=== PATIENT | female | born 1935 | race Caucasian/White ===

== ENCOUNTER → 2016-12-29 | Outpatient (CLI) | payer OTHER ==
--- NOTE | 2016-12-29 10:55 | REPMRS ---
Patient History The patient states she had a clinical breast exam in August 2016. Family history of breast cancer in sister at age 70 and endometrial cancer in mother at age 44. Took hormonal contraceptives for 12 years. Took unspecified hormones for 20 years. Digital Mammo Screening Bilat: December 29, 2016 - Exam #: [id number] Bilateral CC and MLO view(s) were taken. Technologist: Mireille Sims, Technologist Prior study comparison: December 03, 2015, digital bilateral screening mammo, performed at [facility]. November 22, 2014, bilateral digital mammo screening bilat performed at [facility]. FINDINGS: There are scattered fibroglandular densities. There has been no change in the appearance of the mammogram from the prior studies. There is a mild amount of residual fibroglandular tissue which is fairly symmetric. There is no interval development of dominant mass, architectural distortion, or clustered microcalcification suggestive of malignancy. ASSESSMENT: BI-RADS/ACR category 1 mammogram. Negative. Recommendation Routine screening mammogram in 1 year (for women over age 40). This mammogram was interpreted with the aid of an FDA-approved computer-aided dectection system. Electronically Signed By: Erasmo Hodge MD 12/29/16 [id number]
== END ==
LOC: M RAD 09:45
PROVIDERS: ATTEND Nurse Practitioner Family
DX: Z12.31 Encounter for screening mammogram for malignant neoplasm of breast (principal); Z80.3 Family history of malignant neoplasm of breast; Z79.3 Long term (current) use of hormonal contraceptives; Z79.899 Other long term (current) drug therapy

== ENCOUNTER → 2017-03-03 | Outpatient (CLI) | payer OTHER ==
[2017-03-03 11:49] LABS: MEAN CORPUSCULAR HEMOGLOBIN 30.7 pg (27.0-33.0); MEAN CORPUSCULAR HGB CONC 33.4 g/dl (32.0-36.5); MEAN CORPUSCULAR VOLUME 91.9 fl (80.0-96.0); RED CELL DISTRIBUTION WIDTH 12.4 % (11.5-14.5); WHITE BLOOD COUNT 5.7 K/mm3 (4.0-10.0)
[2017-03-03 11:56] LABS: ALBUMIN 3.5 GM/DL (3.2-5.2); ALBUMIN/GLOBULIN RATIO 1.13 (1.00-1.93); BILIRUBIN,TOTAL 0.9 MG/DL (0.2-1.0); CALCIUM LEVEL 9.6 MG/DL (8.8-10.2); CREATININE FOR GFR 1.06 MG/DL (0.55-1.02); POTASSIUM SERUM 4.4 MEQ/L (3.5-5.1); TOTAL PROTEIN 6.6 GM/DL (6.4-8.2)
== END ==
LOC: M LRY 08:26
PROVIDERS: ATTEND Nurse Practitioner Family
DX: E78.00 Pure hypercholesterolemia, unspecified (principal); I10 Essential (primary) hypertension; E55.9 Vitamin D deficiency, unspecified

== ENCOUNTER → 2017-08-31 | Outpatient (CLI) | payer OTHER ==
[2017-08-31 11:48] LABS: MEAN CORPUSCULAR HEMOGLOBIN 29.5 pg (27.0-33.0); MEAN CORPUSCULAR HGB CONC 32.3 g/dl (32.0-36.5); MEAN CORPUSCULAR VOLUME 91.5 fl (80.0-96.0); PLATELET COUNT, AUTOMATED 171 10^3/uL (150-450); RED CELL DISTRIBUTION WIDTH 13.2 % (11.5-14.5); WHITE BLOOD COUNT 5.8 10^3/uL (4.0-10.0)
[2017-08-31 12:23] LABS: ALBUMIN 3.7 GM/DL (3.2-5.2); ALBUMIN/GLOBULIN RATIO 1.23 (1.00-1.93); BILIRUBIN,TOTAL 0.8 MG/DL (0.2-1.0); CALCIUM LEVEL 9.1 MG/DL (8.8-10.2); CREATININE FOR GFR 1.07 MG/DL (0.55-1.02); FREE T4 1.09 NG/DL (0.76-1.46); GLOMERULAR FILTRATION RATE 52.3 (>32); POTASSIUM SERUM 4.4 MEQ/L (3.5-5.1); TOTAL PROTEIN 6.7 GM/DL (6.4-8.2)
== END ==
LOC: M LRY 09:18
PROVIDERS: ATTEND Nurse Practitioner Family
DX: E78.5 Hyperlipidemia, unspecified (principal); I10 Essential (primary) hypertension; R53.83 Other fatigue; E55.9 Vitamin D deficiency, unspecified; E53.8 Deficiency of other specified B group vitamins

== ENCOUNTER → 2017-12-14 | Outpatient (CLI) | payer OTHER ==
[2017-12-14 11:27] LABS: BASO % 0.7 % (0.0-1.0); EOS # 0.2 10^3/uL (0.0-0.50); EOS % 4.2 % (0.0-3.0); HEMATOCRIT 43.4 % (36.0-47.0); HEMOGLOBIN 14.1 g/dl (12.0-16.0); IMMATURE GRANULOCYTE % 0.7 % (0-3.0); LYMPH # 1.3 10^3/uL (1.5-4.5); LYMPH % 23.5 % (24.0-44.0); MEAN CORPUSCULAR HEMOGLOBIN 29.3 pg (27.0-33.0); MEAN CORPUSCULAR HGB CONC 32.5 g/dl (32.0-36.5); MEAN CORPUSCULAR VOLUME 90.2 fl (80.0-96.0); MONO # 0.7 10^3/uL (0.0-0.8); MONO % 12.2 % (0.0-5.0); NEUTROPHILS # 3.3 10^3/uL (1.8-7.7); NEUTROPHILS % 58.7 % (36.0-66.0); PLATELET COUNT, AUTOMATED 160 10^3/uL (150-450); RED BLOOD COUNT 4.81 10^6/uL (4.00-5.40); RED CELL DISTRIBUTION WIDTH 12.8 % (11.5-14.5); WHITE BLOOD COUNT 5.7 10^3/uL (4.0-10.0)
[2017-12-14 11:37] LABS: ALBUMIN 3.8 GM/DL (3.2-5.2); ALBUMIN/GLOBULIN RATIO 1.15 (1.00-1.93); ALKALINE PHOSPHATASE 55 U/L (45-117); ALT/SGPT 11 U/L (12-78); ANION GAP 5 MEQ/L (8-16); AST/SGOT 14 U/L (7-37); BILIRUBIN,TOTAL 0.9 MG/DL (0.2-1.0); BLOOD UREA NITROGEN 22 MG/DL (7-18); CALCIUM LEVEL 9.3 MG/DL (8.8-10.2); CARBON DIOXIDE LEVEL 32 MEQ/L (21-32); CHLORIDE LEVEL 104 MEQ/L (98-107); CHOLESTEROL LEVEL 208 MG/DL (<200); CHOLESTEROL RISK RATIO 2.144 (<5); CREATININE FOR GFR 1.03 MG/DL (0.55-1.30); GLOMERULAR FILTRATION RATE 54.6 (>32); GLUCOSE, FASTING 98 MG/DL (70-100); HDL CHOLESTEROL 97 MG/DL (>40); LDL CHOLESTEROL 96.4 MG/DL (<100); NON-HDL-C 111 MG/DL; POTASSIUM SERUM 4.2 MEQ/L (3.5-5.1); SODIUM LEVEL 141 MEQ/L (136-145); TOTAL PROTEIN 7.1 GM/DL (6.4-8.2); TRIGLYCERIDES LEVEL 73 MG/DL (<150)
[2017-12-14 11:46] LABS: ESTIMATED AVERAGE GLUCOSE 128 MG/DL (60-110); HEMOGLOBIN A1c 6.1 %; TOTAL 25(OH) VITAMIN D 61.1 NG/ML (30.0-100.0)
== END ==
LOC: M LRY 09:15
DX: E55.9 Vitamin D deficiency, unspecified (principal); I10 Essential (primary) hypertension; E78.5 Hyperlipidemia, unspecified; Z79.899 Other long term (current) drug therapy
CPT/HCPCS: 80053

== ENCOUNTER → 2018-06-13 | Outpatient (CLI) | payer OTHER ==
[2018-06-13 11:54] LABS: HEMOGLOBIN 13.2 g/dl (12.0-15.5); MEAN CORPUSCULAR HEMOGLOBIN 29.5 pg (27.0-33.0); MEAN CORPUSCULAR HGB CONC 32.2 g/dl (32.0-36.5); MEAN CORPUSCULAR VOLUME 91.5 fl (80.0-96.0); PLATELET COUNT, AUTOMATED 146 10^3/uL (150-450); RED BLOOD COUNT 4.48 10^6/uL (4.00-5.40); RED CELL DISTRIBUTION WIDTH 13.3 % (11.5-14.5); WHITE BLOOD COUNT 5.9 10^3/uL (4.0-10.0)
[2018-06-13 12:21] LABS: ALBUMIN 3.4 GM/DL (3.2-5.2); ALKALINE PHOSPHATASE 57 U/L (45-117); ALT/SGPT 13 U/L (12-78); ANION GAP 5 MEQ/L (8-16); AST/SGOT 15 U/L (7-37); BILIRUBIN,TOTAL 0.7 MG/DL (0.2-1.0); BLOOD UREA NITROGEN 23 MG/DL (7-18); CALCIUM LEVEL 8.6 MG/DL (8.8-10.2); CARBON DIOXIDE LEVEL 33 MEQ/L (21-32); CHLORIDE LEVEL 104 MEQ/L (98-107); CHOLESTEROL LEVEL 209 MG/DL (<200); CHOLESTEROL RISK RATIO 2.069 (<5); CPK CREATINE PHOSPHOKINASE 75 U/L (26-192); CREATININE FOR GFR 1.08 MG/DL (0.55-1.30); GLOMERULAR FILTRATION RATE 51.7 (>32); GLUCOSE, FASTING 98 MG/DL (70-100); HDL CHOLESTEROL 101 MG/DL (>40); LDL CHOLESTEROL 94 MG/DL (<100); NON-HDL-C 108 MG/DL; POTASSIUM SERUM 4.2 MEQ/L (3.5-5.1); SODIUM LEVEL 142 MEQ/L (136-145); TOTAL PROTEIN 6.5 GM/DL (6.4-8.2); TRIGLYCERIDES LEVEL 72 MG/DL (<150)
== END ==
LOC: M LRY 08:51
DX: E78.00 Pure hypercholesterolemia, unspecified (principal); I10 Essential (primary) hypertension
CPT/HCPCS: 82550

== ENCOUNTER → 2018-12-20 | Outpatient (REF) | payer MEDICARE ==
[2018-12-20 17:39] LABS: HEMOGLOBIN A1c 6.5 %
[2018-12-20 17:40] LABS: ALBUMIN 3.8 GM/DL (3.2-5.2); BILIRUBIN,TOTAL 1.1 MG/DL (0.2-1.0); CALCIUM LEVEL 9.4 MG/DL (8.8-10.2); CHOLESTEROL RISK RATIO 2.305 (<5); GLOMERULAR FILTRATION RATE 56.4 (>32); POTASSIUM SERUM 4.1 MEQ/L (3.5-5.1); THYROID STIMULATING HORMONE 3.17 uIU/ML (0.358-3.740); TOTAL PROTEIN 6.3 GM/DL (6.4-8.2)
[2018-12-20 18:04] LABS: BASO % 0.6 % (0.0-1.0); EOS # 0.1 10^3/uL (0.0-0.50); EOS % 0.7 % (0.0-3.0); HEMATOCRIT 43.4 % (36.0-47.0); HEMOGLOBIN 14.1 g/dl (12.0-15.5); LYMPH # 1.1 10^3/uL (1.5-4.5); LYMPH % 15.2 % (24.0-44.0); MEAN CORPUSCULAR HEMOGLOBIN 29.7 pg (27.0-33.0); MEAN CORPUSCULAR HGB CONC 32.5 g/dl (32.0-36.5); MEAN CORPUSCULAR VOLUME 91.4 fl (80.0-96.0); MONO # 0.8 10^3/uL (0.0-0.8); MONO % 10.8 % (0.0-5.0); NEUTROPHILS # 5.1 10^3/uL (1.8-7.7); NEUTROPHILS % 72.4 % (36.0-66.0); PLATELET COUNT, AUTOMATED 163 10^3/uL (150-450); RED BLOOD COUNT 4.75 10^6/uL (4.00-5.40); WHITE BLOOD COUNT 7.1 10^3/uL (4.0-10.0)
== END ==
LOC: M SFHCLERA 10:19
PROVIDERS: ATTEND Family Medicine
DX: E78.5 Hyperlipidemia, unspecified (principal); I10 Essential (primary) hypertension; E66.9 Obesity, unspecified; Z68.34 Body mass index [BMI] 34.0-34.9, adult
CPT/HCPCS: 80053; 80061; 83036; 84443; 85025; 93005; G0463

== ENCOUNTER → 2018-12-30 | Outpatient (CLI) | payer MEDICARE ==
[2018-12-30 18:38] LABS: CALCIUM LEVEL 9.2 MG/DL (8.8-10.2); CREATININE FOR GFR 1.3 MG/DL (0.55-1.30); GLOMERULAR FILTRATION RATE 41.6 (>32); POTASSIUM SERUM 4.4 MEQ/L (3.5-5.1)
== END ==
LOC: M LRY 10:07
PROVIDERS: ATTEND Nurse Practitioner Family
DX: E87.6 Hypokalemia (principal); I10 Essential (primary) hypertension

== ENCOUNTER → 2019-01-23 | Outpatient (CLI) | payer MEDICARE ==
[2019-01-23 12:04] LABS: CALCIUM LEVEL 8.7 MG/DL (8.8-10.2); CREATININE FOR GFR 1.32 MG/DL (0.55-1.30); GLOMERULAR FILTRATION RATE 40.9 (>32); POTASSIUM SERUM 4.3 MEQ/L (3.5-5.1)
== END ==
LOC: M LRY 09:11
PROVIDERS: ATTEND Nurse Practitioner Family
DX: I10 Essential (primary) hypertension (principal)

== ENCOUNTER → 2019-02-16 | Outpatient (REF) | payer MEDICARE ==
[2019-02-16 17:12] LABS: CALCIUM LEVEL 9.5 MG/DL (8.8-10.2); CREATININE FOR GFR 1.31 MG/DL (0.55-1.30); GLOMERULAR FILTRATION RATE 41.3 (>32)
== END ==
LOC: M SFHCLERA 10:28
PROVIDERS: ATTEND Family Medicine
DX: I48.1 Persistent atrial fibrillation (principal)
CPT/HCPCS: 80048; G0463

== ENCOUNTER → 2019-04-04 | Outpatient (CLI) | payer MEDICARE ==
[2019-04-04 13:17] LABS: FREE T4 1.88 NG/DL (0.76-1.46); THYROID STIMULATING HORMONE 1.9 uIU/ML (0.358-3.740)
== END ==
LOC: M LRY 09:22
PROVIDERS: ATTEND Nurse Practitioner Family
DX: E03.9 Hypothyroidism, unspecified (principal)

== ENCOUNTER → 2019-04-19 | Outpatient (REF) | payer MEDICARE ==
[2019-04-19 20:08] LABS: CREATININE FOR GFR 1.15 MG/DL (0.55-1.30); POTASSIUM SERUM 4.6 MEQ/L (3.5-5.1)
== END ==
LOC: M SFHCLERA 14:52
PROVIDERS: ATTEND Family Medicine
DX: I10 Essential (primary) hypertension (principal)

== ENCOUNTER → 2019-06-21 | Outpatient (REF) | payer MEDICARE ==
[~2019-06-21] MED LIST: ACET-897 PO; DOCU-129 PO; DOCU100C16 PO; EZET10TA21; EZET10TA21 PO; FURO40TA2; FURO40TA2 PO; LEVO100T5; META0.52 PO; MIRA3350 PO; PANT40TA3; PANT40TA3 PO; POTA1TAB23; POTA1TAB23 PO; PRAD150C6; PRAD150C6 PO; PRAD75CA5 PO; ROSU20TA5; ROSU20TA5 PO; SYNT100T PO; VALS40TA9; VALS40TA9 PO
== END ==
LOC: M SFHCLERA 12:15
PROVIDERS: ATTEND Family Medicine
DX: I25.10 Atherosclerotic heart disease of native coronary artery without angina pectoris (principal); E03.8 Other specified hypothyroidism

== ENCOUNTER → 2019-06-26 | Outpatient (REF) | payer MEDICARE ==
[2019-06-26 12:41] LABS: CALCIUM LEVEL 8.9 MG/DL (8.8-10.2); CHOLESTEROL RISK RATIO 2.164 (<5); CREATININE FOR GFR 1.06 MG/DL (0.55-1.30); GLOMERULAR FILTRATION RATE 52.6 (>32); POTASSIUM SERUM 4.4 MEQ/L (3.5-5.1); THYROID STIMULATING HORMONE 0.406 uIU/ML (0.358-3.740)
== END ==
LOC: M SFHCLERA 09:41
PROVIDERS: ATTEND Family Medicine
DX: I25.10 Atherosclerotic heart disease of native coronary artery without angina pectoris (principal); E03.8 Other specified hypothyroidism

== ENCOUNTER 2019-07-06 23:30 | Observation (INO) | payer MEDICARE ==
[~2019-07-06] VITALS: Ht 160 cm; Wt 89.8 kg
[2019-07-06] MEDS ORDERED: ROSU20TA5 (23:49)
[2019-07-06] MEDS ORDERED: VALS1TAB49 (23:49)
[2019-07-06] MEDS ORDERED: PRAD150C6 (23:49)
[2019-07-06] MEDS ORDERED: EZET10TA21 (23:49)
[2019-07-06] MEDS ORDERED: DOCU-129 PO (23:49)
[2019-07-06] MEDS ORDERED: POTA1TAB23 (23:49)
[2019-07-06] MEDS ORDERED: LEVO100T5 (23:49)
[2019-07-06] MEDS ORDERED: FURO40TA2 (23:49)
[2019-07-06] MEDS ORDERED: PANT40TA3 (23:49)
[2019-07-07 00:44] LABS: BASO # 0.1 10^3/uL (0.0-0.2); EOS # 0.2 10^3/uL (0.0-0.5); EOS % 3.3 % (0.0-3.0); HEMATOCRIT 38.9 % (36.0-47.0); HEMOGLOBIN 12.8 g/dl (12.0-15.5); LYMPH # 1.2 10^3/uL (1.5-5.0); LYMPH % 20.6 % (24.0-44.0); MEAN CORPUSCULAR HEMOGLOBIN 31.1 pg (27.0-33.0); MEAN CORPUSCULAR HGB CONC 32.9 g/dl (32.0-36.5); MEAN CORPUSCULAR VOLUME 94.4 fl (80.0-96.0); MONO # 0.8 10^3/uL (0.0-0.8); NEUTROPHILS # 3.7 10^3/uL (1.5-8.5); NEUTROPHILS % 60.9 % (36.0-66.0); PLATELET COUNT, AUTOMATED 153 10^3/uL (150-450); RED BLOOD COUNT 4.12 10^6/uL (4.00-5.40)
[2019-07-07 00:55] LABS: INR 2.12; PROTHROMBIN TIME 23.6 SECONDS (11.8-14.0)
[2019-07-07 00:56] LABS: PARTIAL THROMBOPLASTIN TIME 57.4 SECONDS (25.0-38.4)
[2019-07-07 01:26] LABS: ALBUMIN 3.3 GM/DL (3.2-5.2); ALT/SGPT 16 U/L (12-78); BILIRUBIN,DIRECT < 0.1 MG/DL (0.0-0.2); BILIRUBIN,TOTAL 0.4 MG/DL (0.2-1.0); BLOOD UREA NITROGEN 26 MG/DL (7-18); CALCIUM LEVEL 8.7 MG/DL (8.8-10.2); CARBON DIOXIDE LEVEL 32 MEQ/L (21-32); CHLORIDE LEVEL 106 MEQ/L (98-107); CREATININE FOR GFR 1.06 MG/DL (0.55-1.30); GLOMERULAR FILTRATION RATE 52.6 (>32); GLUCOSE, FASTING 97 MG/DL (70-100); LIPASE 73 U/L (73-393); SODIUM LEVEL 142 MEQ/L (136-145); TOTAL PROTEIN 6.3 GM/DL (6.4-8.2)
[2019-07-07] MEDS ORDERED: ISOVUE-370 76% 100ML VIAL (Q9967) As Ordered ONE (02:23)
--- NOTE | 2019-07-07 03:45 | REPVR ---
PROCEDURE INFORMATION: Exam: CT Abdomen And Pelvis With Contrast Exam date and time: 07/07/2019 2:12 AM Clinical history: 84 years old, female; Other: Rectal bleeding; Additional info: Lower gi bleed, suspect diverticulosis TECHNIQUE: Imaging protocol: Computed tomography of the abdomen and pelvis with intravenous contrast. Radiation optimization: All CT scans at this facility use at least one of these dose optimization techniques: automated exposure control; mA and/or kV adjustment per patient size (includes targeted exams where dose is matched to clinical indication); or iterative reconstruction. Contrast material: ISO; Contrast volume: 100 ml; Contrast route: AC; COMPARISON: No relevant prior studies available. FINDINGS: Mediastinum: Small to medium-sized paraesophageal hiatal hernia. Liver: Normal. No mass. Gallbladder and bile ducts: Cholelithiasis. Pancreas: Normal. No ductal dilation. Spleen: Normal. No splenomegaly. Adrenals: Normal. No mass. 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 Stomach and bowel: Moderate diverticulosis coli. Question trace inflammation around the sigmoid colon on axial image 120. Appendix: No evidence of appendicitis. Intraperitoneal space: Unremarkable. No free air. No significant fluid collection. Vasculature: Renal artery origin moderate stenosis. Mild to moderate aortic and iliac artery atherosclerotic calcification. Lymph nodes: Unremarkable. No enlarged lymph nodes. Bladder: Unremarkable as visualized. Reproductive: Hysterectomy. Bones/joints: Mild/moderate lumbar spondylosis. Soft tissues: Moderate bilateral fat protruding inguinal hernias. IMPRESSION: 1. Moderate diverticulosis coli with equivocal minimal inflammation/diverticulitis. 2. Moderate bilateral fat protruding inguinal hernias. 3. Cholelithiasis. 4. 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 5. Small to medium-sized paraesophageal hiatal hernia with wall thickening. Recommend followup. Electronically signed by: Phil Aguila On 07/07/2019 03:44:23 AM
[2019-07-07] MEDS ORDERED: EZET10TA21 PO (04:45)
[2019-07-07] MEDS ORDERED: FURO40TA2 PO (04:45)
[2019-07-07] MEDS ORDERED: POTA1TAB23 PO (04:45)
[2019-07-07] MEDS ORDERED: ROSU20TA5 PO (04:45)
[2019-07-07] MEDS ORDERED: DOCU100C16 PO (04:45)
[2019-07-07] MEDS ORDERED: ACET-897 PO (04:45)
[2019-07-07] MEDS ORDERED: SYNT100T PO (04:45)
[2019-07-07] MEDS ORDERED: VALS1TAB49 PO (04:45)
[2019-07-07] MEDS ORDERED: PRAD150C6 PO (04:45)
[2019-07-07] MEDS ORDERED: PANT40TA3 PO (04:45)
[2019-07-07] MEDS ORDERED: ACETAMINOPHEN 500 MG TAB PO PRN (05:45)
[2019-07-07 08:39] LABS: HEMATOCRIT 38.7 % (36.0-47.0); HEMOGLOBIN 12.4 g/dl (12.0-15.5); MEAN CORPUSCULAR HEMOGLOBIN 30.3 pg (27.0-33.0); MEAN CORPUSCULAR VOLUME 94.6 fl (80.0-96.0); PLATELET COUNT, AUTOMATED 148 10^3/uL (150-450); RED BLOOD COUNT 4.09 10^6/uL (4.00-5.40); WHITE BLOOD COUNT 4.7 10^3/uL (4.0-10.0)
--- NOTE | 2019-07-07 08:57 | HPEPDOC ---
General Date of Admission Jul 06, 2019 at 23:31 Date of Service: Jul 07, 2019 Attending Physician: KELLY GARSIA MD Chief Complaint The patient is a 84-year-old female admitted with a reason for visit of Diverticulitis Of Colon W Hemorrhage. Source: Patient Exam Limitations: No limitations Timing/Duration: 1-3 hours Severity: Moderate Associated Symptoms: Other (rectal bleeding) History of Present Illness 84 yo woman with a history of CAD s/p remote CABG, HLD, HTN, GERD, hypothyroidism and pAfib previously on 75mg BID dabigatran that was increased 3 days prior to presentation to 150mg BID who presents to the ED with acute painless passive rectal bleeding that she noted while urinating before as she prepared to go to bed. She denies any recent constipation, recent hemorrhoids, abdominal pain, weight loss, fever, chills or dizziness. She reports a history of occasional constipation and has noted prior blood streaks when she wipes on the tissue from time to time that she attributed to likely hemorrhoids. She reports that she has been on dabigatran at 75 BID for a long time and 3 days ago saw her heel builder Dr. Molina who increased it to 150 BID. She otherwise reports feeling well with no abdominal pain, chest pain, back pain or suprapubic pain. In the ED she arrived hemodynamically stable and initial workup revealed no anemia, a normal WBC, Cr 1.06, INR 2.12 with normal LFTs, while a CT A/P revealed moderate diverticulosis with equivocal; minimal inflammation/diverticulitis and an incidental 9mm renal angiomyolipoma. Home Medications Scheduled Dabigatran Etexilate Mesylate (Pradaxa) 150 Mg Capsule, 150 MG PO BID, (Reported) Docusate Sodium (Docusate Sodium) 100 Mg Capsule, 100 MG PO QHS, (Reported) Ezetimibe (Ezetimibe) 10 Mg Tablet, 10 MG PO QPM, (Reported) DINNERTIME Furosemide (Furosemide) 40 Mg Tablet, 40 MG PO DAILY, (Reported) Levothyroxine Sodium (Synthroid) 100 Mcg Tablet, 100 MCG PO DAILY, (Reported) Pantoprazole Sodium (Pantoprazole Sodium) 40 Mg Tablet.dr, 40 MG PO DAILY, (Reported) Potassium Chloride (Potassium Chloride) 10 Meq Tablet.er, 10 MEQ PO BID, (Reported) Rosuvastatin Calcium (Rosuvastatin Calcium) 20 Mg Tablet, 20 MG PO QPM, (Reported) DINNERTIME Valsartan (Valsartan) 40 Mg Tablet, 40 MG PO BID, (Reported) Scheduled PRN Acetaminophen (Tylenol Extra Strength) 500 Mg Tablet, 1,000 MG PO Q8H PRN for PAIN, (Reported) Allergies Coded Allergies: No Known Allergies (Unverified , 07/06/19) Past Medical History Medical History GERD CAD HTN HLD Hypothyroidism paroxysmal AFib Surgical History remote CABG Family History Significant Family History: Diverticulitis Social History * Smoker: Denies Alcohol: Denies Drugs: denies Recent Travel/Sick Contacts: Denies: Recent travel, Recent sick contacts Psychosocial History: No pertinent psych hx A-FIB/CHADSVASC A-FIB History Current/History of A-Fib/PAF?: Yes Current PO Anticoag Therapy: Yes Age/Risk Factor Scoring CHADSVASC: CHADSVASC Response (Comments) Value Age Risk Factor Age >/= 75 years old 2 Gender Risk Factor Female 1 Hx of CHF Yes 1 Hx of HTN Yes 1 Hx of Stroke/TIA/or VTE No 0 Hx of Diabetes No 0 Hx of Vascular Disease Yes 1 Total 6 Treatment Treatment ordered: NONE, Dabigatran Reason Anticoagulant not given: Current bleeding Review of Systems Constitutional: Denies: Chills, Fever, Night Sweats Eyes: Denies: Pain, Vision change ENT: Denies: Head Aches, Ear Pain, Dysphagia Skin: Denies: Rash, Lesions, Breakdown Pulmonary: Denies: Dyspnea, Cough Cardiovascular: Denies: Chest Pain, Palpitations, Orthopnea, Paroxysmal Noc. Dyspnea, Lt Headedness Gastrointestinal: Reports: Other Symptoms (passive rectal bleeding without stooling); Denies: Nausea, Vomiting, Abdominal Pain, Diarrhea, Constipation, Melena Genitourinary: Denies: Dysuria, Frequency, Incontinence, Retention Hematologic: Denies: Bruising, Bleeding Excessively Endocrine: Denies: Polydipsia, Polyphagia, Polyuria, Heat Intolerance, Cold Intolerance, Other Endocrine Sx Musculoskeletal: Denies: Neck Pain, Back Pain, Joint Pain, Muscle Pain, Spasms Neurological: Denies: Weakness, Numbness, Change in speech, Confusion Psych: Reports: Mood Normal; Denies: Depression, Memory Issues Physical Examination General Exam: Positive: Alert, No Acute Distress Eye Exam: Positive: PERRLA, Conjunctiva & lids normal, EOMI; Negative: Sclera icteric ENT Exam: Positive: Atraumatic, Mucous membr. moist/pink, Pharynx Normal Neck Exam: Positive: Supple; Negative: JVD, thyromegaly Chest Exam: Positive: Clear to auscultation, Normal air movement Heart Exam: Positive: Rate Normal, Regular Rhythm, Normal S1, Normal S2; Negative: Murmurs, Rubs Abdomen Exam: Positive: Normal bowel sounds, Soft; Negative: Tenderness, Hepatospenomegaly Extremity Exam: Positive: Normal pulses; Negative: Clubbing, Cyanosis, Edema Skin Exam: Positive: Nl turgor and temperature; Negative: Breakdown, Lesion Neuro Exam: Positive: Normal Speech, Cranial Nerves 3-12 NL Psych Exam: Positive: Mental status NL, Mood NL, Oriented x 3 Vital Signs Vital Signs Date Time Temp Pulse Resp B/P (MAP) Pulse Ox O2 Delivery O2 Flow Rate FiO2 07/07/19 07:31 183/76 (111) 07/07/19 07:30 61 98 07/07/19 06:47 14 Room Air 07/06/19 23:45 95.8 Laboratory Data Labs 24H Laboratory Tests 2 07/07/19 00:30: Immature Granulocyte % (Auto) 0.2, Neutrophils (%) (Auto) 60.9, Lymphocytes (%) (Auto) 20.6L, Monocytes (%) (Auto) 14.0H, Eosinophils (%) (Auto) 3.3H, Basophils (%) (Auto) 1.0, Neutrophils # (Auto) 3.7, Lymphocytes # (Auto) 1.2L, Monocytes # (Auto) 0.8, Eosinophils # (Auto) 0.2, Basophils # (Auto) 0.1, Nucleated Red Blood Cells % (auto) 0.0, Anion Gap 4L, Glomerular Filtration Rate 52.6, Calcium Level 8.7L, Total Bilirubin 0.4, Direct Bilirubin < 0.1, Aspartate Amino Transf (AST/SGOT) 23, Alanine Aminotransferase (ALT/SGPT) 16, Alkaline Phosphatase 66, Total Protein 6.3L, Albumin 3.3, Albumin/Globulin Ratio 1.10, Lipase 73 07/07/19 00:42: Prothrombin Time 23.6H, Prothromb Time International Ratio 2.12, Activated Partial Thromboplast Time 57.4H 07/07/19 08:09: CBC/BMP Laboratory Tests 07/07/19 00:30 Assessment/Plan 84 yo woman with CAD, HTN, HLD, GERD, hypothyroidism and paroxysmal Afib who presents with painless passive rectal bleeding and found to have diverticulosis with mild diverticulitis in the setting of a recent dabigatran dose increase. Plan: 1. Rectal bleeding: -hold dabigatran -consulted cardiology to discuss the dose increase as she had previously done well on the 75 BID. Consult order placed, to call this morning. -follow up CBC -No anemia at this time, will check type and screen 2. paroxysmal Afib: -currently in sinus -telemetry -Was previously placed on amio c/b symptomatic bradycardia -discuss management and AC dosing with cardiology 3. Hypertension: -continue home valsartan 40 BID 4. GERD: -continue protonix 40 daily 5. Hyperlipidemia: -continue crestor 20 QD and Ezetimibe 6. Hypothyroidism: -continue home synthroid DVT prophylaxis: SCDs and TEDs Diet: regular Plan / VTE VTE Prophylaxis Ordered?: Yes VTE Exclusion Pharmacological: Active Bleeding KELLY GARSIA MD Jul 07, 2019 08:57
[2019-07-07 09:07] LABS: CALCIUM LEVEL 9.2 MG/DL (8.8-10.2); CREATININE FOR GFR 1.04 MG/DL (0.55-1.30); GLOMERULAR FILTRATION RATE 53.7 (>32); POTASSIUM SERUM 4.5 MEQ/L (3.5-5.1)
[2019-07-07] MEDS: LEVOTHYROXINE 100MCG TABLET (0.1MG) PO SCH (09:12)
[2019-07-07] MEDS: VALSARTAN 40MG TABLET (DIOVAN) PO SCH ×2 (09:12→21:33)
[2019-07-07] MEDS: POTASSIUM CHLORIDE 10 MEQ SR TABLET PO SCH ×2 (09:13→20:55)
[2019-07-07] MEDS: PANTOPRAZOLE 40MG TAB (PROTONIX) PO SCH (09:13)
[2019-07-07] MEDS: FUROSEMIDE 40 MG TAB PO SCH (09:13)
[2019-07-07 14:17] VITALS: BP 146/68
--- NOTE | 2019-07-07 19:55 | ECGEPIP ---
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
[2019-07-07] MEDS ORDERED: ROSUVASTATIN 10 MG TAB (CRESTOR) PO SCH (21:00)
[2019-07-07] MEDS ORDERED: DOCUSATE SODIUM 100 MG CAP PO SCH (21:00)
[2019-07-07] MEDS ORDERED: EZETIMIBE 10 MG TAB (ZETIA) PO SCH (21:00)
[2019-07-07 22:00] VITALS: BP 110/70
[2019-07-08] MEDS: LEVOTHYROXINE 100MCG TABLET (0.1MG) PO SCH (05:43)
[2019-07-08 06:00] VITALS: BP 139/62
[2019-07-08 07:36] LABS: HEMATOCRIT 39.5 % (36.0-47.0); HEMOGLOBIN 12.8 g/dl (12.0-15.5); MEAN CORPUSCULAR HEMOGLOBIN 30.8 pg (27.0-33.0); MEAN CORPUSCULAR HGB CONC 32.4 g/dl (32.0-36.5); MEAN CORPUSCULAR VOLUME 95.2 fl (80.0-96.0); PLATELET COUNT, AUTOMATED 151 10^3/uL (150-450); RED BLOOD COUNT 4.15 10^6/uL (4.00-5.40); WHITE BLOOD COUNT 4.2 10^3/uL (4.0-10.0)
[2019-07-08 07:59] LABS: CREATININE FOR GFR 0.99 MG/DL (0.55-1.30); GLOMERULAR FILTRATION RATE 56.9 (>32); POTASSIUM SERUM 4.1 MEQ/L (3.5-5.1)
[2019-07-08 09:07] VITALS: BP 110/58
[2019-07-08] MEDS: PANTOPRAZOLE 40MG TAB (PROTONIX) PO SCH (09:07)
[2019-07-08] MEDS: POTASSIUM CHLORIDE 10 MEQ SR TABLET PO SCH (09:07)
[2019-07-08] MEDS: VALSARTAN 40MG TABLET (DIOVAN) PO SCH (09:07)
[2019-07-08] MEDS: FUROSEMIDE 40 MG TAB PO SCH (09:07)
[2019-07-08] MEDS ORDERED: PRAD75CA5 PO (12:32)
--- NOTE | 2019-07-08 13:45 | DS.PDOC ---
Discharge Summary General Date of Admission Jul 06, 2019 at 23:31 Date of Discharge July 08, 2019 Primary Care Physician: JAJA WHITE MD Discharge Summary PROCEDURES PERFORMED DURING STAY: None. ADMITTING DIAGNOSES: 1. Rectal blood loss. DISCHARGE DIAGNOSES: 1. Diverticular disease with hemorrhage,Coronary artery disease, paroxysmal atrial fibrillation for which the patient is on chronic anticoagulation, dyslipidemia, hypertension, gastroesophageal reflux disease, hypothyroidism. COMPLICATIONS/CHIEF COMPLAINT: Diverticulitis Of Colon W Hemorrhage. HISTORY OF PRESENT ILLNESS/HOSPITAL COURSE: This is a 84-year-old female with a history of paroxysmal atrial fibrillation. She is normally on anticoagulation with Pradaxa 75 mg twice a day. She has been on this dosage for several months. Three days prior to admission her dosage was increased to 150 mg twice a day. The patient then developed acute painless rectal bleeding. She did not have associated symptoms such as lightheadedness or dizziness. She did not develop hypotension or tachycardia. She was not short of breath or hypoxic. The patient was admitted to the [facility] floor. She did not have additional bleeding after arrival there. CT scan did show minimal diverticular disease, which was the likely source of bleed. Her Pradaxa was held. The patient's hemoglobin remained stable at 12.4 - 12.8 and she did not require transfusion. This appears to have been directly associated with increasing the dosage of her Pradaxa. Of interest, upon further evaluation the patient is found to have chronic kidney disease stage III, with glomerular filtration rate as low as 40.9. Dosage of 75 mg twice a day is appropriate in this patient.. DISCHARGE MEDICATIONS: Please see below. ALLERGIES: Please see below. PHYSICAL EXAMINATION ON DISCHARGE: VITAL SIGNS: Please see below. HEENT: Neck is supple with no adenopathy or thyromegaly, oral mucosa is moist, she does not exhibit any pallor CARDIOVASCULAR EXAMINATION: Regular rate and rhythm with a normal S1 and S2 RESPIRATORY EXAMINATION: Clear to auscultation ABDOMINAL EXAMINATION: Soft, nontender, nondistended with significant central obesity EXTREMITIES: No peripheral edema, pedal pulses are palpable SKIN: No acute lesions NEUROLOGICAL EXAMINATION: No focal neuromotor or sensory deficit PSYCHIATRIC EXAMINATION: Patient is actually remarkably anxious about her overall health and requires significant reassurance. LABORATORY DATA: Please see below. IMAGING: ABD CT SCAN IMPRESSION: 1. Moderate diverticulosis coli with equivocal minimal inflammation/diverticulitis. 2. Moderate bilateral fat protruding inguinal hernias. 3. Cholelithiasis. 4. 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 5. Small to medium-sized paraesophageal hiatal hernia with wall thickening. Recommend followup. Electronically signed by: Phil Aguila On 07/07/2019 03:44:23 AM PROGNOSIS: ACTIVITY: As tolerated. DIET: Heart healthy DISCHARGE PLAN: Patient is stable for discharge to home. We suggest that she resume her Pradaxa at her lower dose 75 mg by mouth twice a day starting July 11. If she has significant recurrence of bleeding she would then need to call her PCP about this medication. Again, please note the patient has underlying stage III chronic kidney disease which would indicate a lower dosage. She should then follow up with her primary care provider, Dr. White in 1-2 weeks. DISPOSITION: . To home DISCHARGE CONDITION: Stable. TIME SPENT ON DISCHARGE: Greater than 35 minutes. Vital Signs/I&Os Vital Signs Date Time Temp Pulse Resp B/P (MAP) Pulse Ox O2 Delivery O2 Flow Rate FiO2 07/08/19 09:07 110/58 07/08/19 06:00 97.5 55 18 96 Room Air I&O- Last 24 Hours up to 6 AM 07/08/19 05:59 Intake Total 570 ml Output Total 700 ml Balance -130 ml Laboratory Data Labs 24H Laboratory Tests 2 07/08/19 07:16: Nucleated Red Blood Cells % (auto) 0.0, Anion Gap 3L, Glomerular Filtration Rate 56.9, Calcium Level 9.0 CBC/BMP Laboratory Tests 07/08/19 07:16 Discharge Medications Scheduled Dabigatran Etexilate Mesylate (Pradaxa) 75 Mg Capsule, 75 MG PO BID TO START JULY 11 Docusate Sodium (Docusate Sodium) 100 Mg Capsule, 100 MG PO QHS, (Reported) Ezetimibe (Ezetimibe) 10 Mg Tablet, 10 MG PO QPM, (Reported) DINNERTIME Furosemide (Furosemide) 40 Mg Tablet, 40 MG PO DAILY, (Reported) Levothyroxine Sodium (Synthroid) 100 Mcg Tablet, 100 MCG PO DAILY, (Reported) Pantoprazole Sodium (Pantoprazole Sodium) 40 Mg Tablet.dr, 40 MG PO DAILY, (Reported) Potassium Chloride (Potassium Chloride) 10 Meq Tablet.er, 10 MEQ PO BID, (Reported) Rosuvastatin Calcium (Rosuvastatin Calcium) 20 Mg Tablet, 20 MG PO QPM, (Reported) DINNERTIME Valsartan (Valsartan) 40 Mg Tablet, 40 MG PO BID, (Reported) Scheduled PRN Acetaminophen (Tylenol Extra Strength) 500 Mg Tablet, 1,000 MG PO Q8H PRN for PAIN, (Reported) Allergies Coded Allergies: No Known Allergies (Unverified , 07/06/19) HIEU BEAL MD Jul 08, 2019 13:45
== END 2019-07-08 13:55 | disposition home or self-care (01) ==
LOC: M ED 23:30 → M ED INP 23:31 → M MSPAV 07-07 14:33
PROVIDERS: ADMIT Internal Medicine; ATTEND Internal Medicine
DX: K57.91 Diverticulosis of intestine, part unspecified, without perforation or abscess with bleeding (principal); I25.10 Atherosclerotic heart disease of native coronary artery without angina pectoris; I48.0 Paroxysmal atrial fibrillation; E78.5 Hyperlipidemia, unspecified; K21.9 Gastro-esophageal reflux disease without esophagitis; E03.9 Hypothyroidism, unspecified; I12.9 Hypertensive chronic kidney disease with stage 1 through stage 4 chronic kidney disease, or unspecified chronic kidney disease; N18.3 Chronic kidney disease, stage 3 (moderate); K80.20 Calculus of gallbladder without cholecystitis without obstruction; K40.20 Bilateral inguinal hernia, without obstruction or gangrene, not specified as recurrent; Z95.1 Presence of aortocoronary bypass graft; Z79.01 Long term (current) use of anticoagulants; Z79.899 Other long term (current) drug therapy
CPT/HCPCS: 36415; 74177; 80048; 80076; 83690; 85025; 85027; 85610; 85730; 86850; 86900; 86901; 93005; 93041; 99285; G0378; Q9967

== ENCOUNTER 2019-08-30 22:32 | Inpatient (IN) | payer MEDICARE ==
[~2019-08-30] VITALS: Ht 160 cm; Wt 91.6 kg
[~2019-08-30 22:32] MED LIST changes: -META0.52 PO; -MIRA3350 PO
[2019-08-30 23:12] LABS: BASO # 0.1 10^3/uL (0.0-0.2); EOS # 0.1 10^3/uL (0.0-0.5); EOS % 2.3 % (0.0-3.0); HEMATOCRIT 38.7 % (36.0-47.0); HEMOGLOBIN 12.3 g/dl (12.0-15.5); LYMPH # 1.2 10^3/uL (1.5-5.0); MEAN CORPUSCULAR HEMOGLOBIN 29.4 pg (27.0-33.0); MEAN CORPUSCULAR HGB CONC 31.8 g/dl (32.0-36.5); MEAN CORPUSCULAR VOLUME 92.6 fl (80.0-96.0); MONO # 0.8 10^3/uL (0.0-0.8); MONO % 14.3 % (0.0-5.0); NEUTROPHILS # 3.2 10^3/uL (1.5-8.5); NEUTROPHILS % 60.2 % (36.0-66.0); PLATELET COUNT, AUTOMATED 168 10^3/uL (150-450); RED BLOOD COUNT 4.18 10^6/uL (4.00-5.40); WHITE BLOOD COUNT 5.2 10^3/uL (4.0-10.0)
[2019-08-30 23:23] LABS: INR 1.39; PARTIAL THROMBOPLASTIN TIME 28.6 SECONDS (25.0-38.4); PROTHROMBIN TIME 16.8 SECONDS (11.8-14.0)
[2019-08-31 00:03] LABS: ALBUMIN 3.5 GM/DL (3.2-5.2); BILIRUBIN,DIRECT 0.1 MG/DL (0.0-0.2); BILIRUBIN,TOTAL 0.4 MG/DL (0.2-1.0); CALCIUM LEVEL 8.9 MG/DL (8.8-10.2); CREATININE FOR GFR 1.13 MG/DL (0.55-1.30); GLOMERULAR FILTRATION RATE 48.8 (>32); POTASSIUM SERUM 4.7 MEQ/L (3.5-5.1); TOTAL PROTEIN 6.6 GM/DL (6.4-8.2)
[2019-08-31] MEDS ORDERED: ISOVUE-370 76% 100ML VIAL (Q9967) As Ordered ONE (00:11)
--- NOTE | 2019-08-31 00:57 | REPVR ---
PROCEDURE INFORMATION: Exam: CT Abdomen And Pelvis With Contrast Exam date and time: 08/31/2019 12:06 AM Age: 84 years old Clinical history: Abdominal pain; Generalized; Additional info: Gi bleed, HX of diverticulitis TECHNIQUE: Imaging protocol: Computed tomography of the abdomen and pelvis with intravenous contrast. Radiation optimization: All CT scans at this facility use at least one of these dose optimization techniques: automated exposure control; mA and/or kV adjustment per patient size (includes targeted exams where dose is matched to clinical indication); or iterative reconstruction. Contrast material: ISO; Contrast volume: 100 ml; Contrast route: AC; COMPARISON: CT ABD/PEL W/IV CONTRAST ONLY 07/07/2019 2:29 AM FINDINGS: Lungs: No suspicious mass or airspace process in the visualized lung bases. Mediastinum: Hiatal hernia is present measuring 7 cm. Liver: Liver appears normal with no focal abnormality. Gallbladder and bile ducts: Gallstones are present in the gallbladder lumen. No adjacent fluid or duct dilatation. Pancreas: Pancreas appears normal. No focal mass or peripancreatic inflammation. Spleen: Spleen appears homogeneous without focal mass. Adrenals: Adrenal glands are normal in appearance. Kidneys and ureters: Kidneys are unremarkable aside from an exophytic 8mm anterior right midpole cyst is unchanged, and a benign fat lesion in the medial mid pole right kidney, also unchanged. Stomach and bowel: No evidence of small bowel obstruction. Sparse colonic diverticula are present without evidence of inflammation. Appendix: Normal caliber appendix is identified, with no adjacent inflammation. Intraperitoneal space: No pneumoperitoneum. Vasculature: Atherosclerotic change present in the aorta, without aneurysm. Lymph nodes: No enlarged lymph nodes. Bladder: Urinary bladder appears normal. Reproductive: Uterus is surgically absent. Bones/joints: Bony structures are normal except for lumbar spine degenerative disc changes. Soft tissues: Unremarkable. IMPRESSION: 1. No evidence of acute abdominal or pelvic hemorrhage. 2. Scattered colonic diverticula changes without active inflammation. 3. Cholelithiasis. No biliary obstruction. 4. Large hiatal hernia COMMENT: Consistent with the [place] [employer]'s Incidental Findings Committee Report (J Am Tommie Radiol 2010): Unless the patient's specific circumstances suggest otherwise, any liver lesion 0.5 cm or less, any cystic kidney lesion less than 1.0 cm, and/or any adrenal lesion 1.0 cm or less not otherwise characterized in this report as possessing suspicious or indeterminate imaging features is/are highly likely to be benign and do not require follow-up imaging or biopsy. Electronically signed by: Guero Fletcher On 08/31/2019 00:57:05 AM
[2019-08-31] MEDS ORDERED: PRAD75CA5 PO (02:49)
[2019-08-31 03:15] LABS: HEMATOCRIT 35.6 % (36.0-47.0); HEMOGLOBIN 11.8 g/dl (12.0-15.5)
--- NOTE | 2019-08-31 03:40 | HPEPDOC ---
[facility] Medical History & Physical Date of Admission Aug 31, 2019 Date of Service: Aug 31, 2019 Primary Care Physician: JAJA PETERSEN MD Attending Physician: ASAF MENEZES MD History and Physical CHIEF COMPLAINT: blood mixed with stool HISTORY OF PRESENT ILLNESS: This is a 84-year-old female with a pertinent past medical history of atrial fibrillation on Pradaxa presenting today for painless rectal bleeding 1. Patient states that earlier this evening when she was trying to urinate she noticed in her toilet bowl bright red blood. She noticed when she wiped there was blood in the tissue paper. She denies having any nausea, vomiting, diarrhea or abdominal pain. She states this is similar to her previous episode when she was admitted early June. She states she is compliant with her Pradaxa 75 mg twice a day, which was the reduced does she was discharged on last time. She denies having any colonoscopies in the past and really does not want them Otherwise patient denies weight loss, hair loss, headache, visual changes, chest pain, shortness of breath, cough, , muscle aches, worsening arthritis and change in mood. She does endorse constipation and she currently does take stool softener PAST MEDICAL HISTORY: 1. CABG in 1999, Chronic CAD 2. Hypertension. 3. Hyperlipidemia. 4. Chronic heartburn. 5. Proximal Atrial fibrillation 6. History of rectal bleeds, no colonoscopy (last episode June 2019) HOME MEDICATIONS: Please see below. ALLERGIES: Please see below PAST SURGICAL HISTORY: 1. Hysterectomy 2. Cardiac quad bypass SOCIAL HISTORY: Lives with: Alone Employment: Retired, Tobacco use: Never. ETOH: Social, Illicit drug use: Never, CODE STATUS: DNR/DNI FAMILY HISTORY: Reviewed and positive for diverticulitis REVIEW OF SYSTEMS: 10 systems reviewed and negative other than HPI PHYSICAL EXAMINATION: VITAL SIGNS: See below GENERAL: Pleasant 84-year-old female laying bed awake alert oriented speaking in complete sentences no acute distress HEENT: Atraumatic normocephalic pupils are equal round and reactive. Fair dentition Moist mucous membranes no JVD CARDIOVASCULAR: S1 S2 sinus rhythm regular no additional heart sounds appreciated. RESPIRATORY: Clear to auscultation bilaterally. ABDOMINAL: Bowel sounds present abdomen soft and nontender Guaiac stool positive EXTREMITIES: No clubbing cyanosis or edema NEUROLOGICAL: Spontaneously moves all 4 extremities cranial 2 through 12 grossly intact no gross focal deficits appreciated PSYCHOLOGICAL: Appropriate LABORATORY DATA: See below. MICROBIOLOGY: Please see below. IMAGIN08/31/[address] 1. No evidence of acute abdominal or pelvic hemorrhage. 2. Scattered colonic diverticula changes without active inflammation. 3. Cholelithiasis. No biliary obstruction. 4. Large hiatal hernia ASSESSMENT & PLAN: This is a 84-year-old female with a pertinent past medical history of atrial fibrillation on Pradaxa who will be admitted for management of lower GI bleed. PROBLEMS: 1. Lower GI Bleed. She has painless rectal bleeding 1. CT of the abdomen positive for scattered colonic diverticuli which can contribute to her painless rectal bleed. We will hold her Pradaxa and follow-up with her CBC in the a.m. No anemia at this time. And currently hemodynamically stable. Well obtain type and screen at the next CBC at 6 AM. The patient did express that she does not want a colonoscopy at this current time. If she is clinically stable without needing any transfusions can possibly discharge in the am and can follow up outpatient and establish care with a steel roller. Diet clear liquid diet 2. Paroxysmal atrial fibrillation. Hold Pradaxa due to problem 1. CHADS-Vasc:4 even though her HAS-BLED: 4, Benefits of anticoagulation outweighs risk of bleed and would benefit to continue anticoagulation on discharge. Follows up outpatient with Dr. Molina. Was previously on amiodarone but was discontinued due to bradycardia. Currently sinus rhythm does not need to be placed on te lemetry. 3. Hypertension. Continue with home valsartan 40 mg twice a day. Well hold home Lasix at this current time 4. GERD. Continue home Protonix 40 mg daily 5. Hyperlipidemia. Continue home Crestor 20 mg and Zetia 10mg qpm 6. Hypothyroidism. Continue home Synthroid 100mcg daily DVT PROPHYLAXIS: TEDs DISPOSITION: Possibly less than 2 midnights. Vital Signs Vital Signs Date Time Temp Pulse Resp B/P (MAP) Pulse Ox O2 Delivery O2 Flow Rate FiO2 08/31/19 03:17 59 97 08/31/19 03:15 130/63 (85) 08/31/19 00:59 97.2 17 Room Air Laboratory Data Labs 24H Laboratory Tests 2 08/30/19 22:56: Immature Granulocyte % (Auto) 0.2, Neutrophils (%) (Auto) 60.2, Lymphocytes (%) (Auto) 22.0L, Monocytes (%) (Auto) 14.3H, Eosinophils (%) (Auto) 2.3, Basophils (%) (Auto) 1.0, Neutrophils # (Auto) 3.2, Lymphocytes # (Auto) 1.2L, Monocytes # (Auto) 0.8, Eosinophils # (Auto) 0.1, Basophils # (Auto) 0.1, Nucleated Red Blood Cells % (auto) 0.0, Prothrombin Time 16.8H, Prothromb Time International Ratio 1.39, Activated Partial Thromboplast Time 28.6, Anion Gap 4L, Glomerular Filtration Rate 48.8, Calcium Level 8.9, Total Bilirubin 0.4, Direct Bilirubin 0.1, Aspartate Amino Transf (AST/SGOT) 13, Alanine Aminotransferase (ALT/SGPT) 14, Alkaline Phosphatase 82, Total Protein 6.6, Albumin 3.5, Albumin/Globulin Ratio 1.13, Lipase 90 CBC/BMP Laboratory Tests 08/30/19 22:56 08/31/19 03:09 Home Medications Scheduled Dabigatran Etexilate Mesylate (Pradaxa) 75 Mg Capsule, 75 MG PO BID Docusate Sodium (Docusate Sodium) 100 Mg Capsule, 100 MG PO QHS Ezetimibe (Ezetimibe) 10 Mg Tablet, 10 MG PO QPM DINNERTIME Furosemide (Furosemide) 40 Mg Tablet, 40 MG PO DAILY Levothyroxine Sodium (Synthroid) 100 Mcg Tablet, 100 MCG PO DAILY Pantoprazole Sodium (Pantoprazole Sodium) 40 Mg Tablet.dr, 40 MG PO DAILY Potassium Chloride (Potassium Chloride) 10 Meq Tablet.er, 10 MEQ PO BID Rosuvastatin Calcium (Rosuvastatin Calcium) 20 Mg Tablet, 20 MG PO QPM DINNERTIME Valsartan (Valsartan) 40 Mg Tablet, 40 MG PO BID Scheduled PRN Acetaminophen (Tylenol Extra Strength) 500 Mg Tablet, 1,000 MG PO Q8H PRN for PAIN Allergies Coded Allergies: No Known Allergies (Unverified , 07/06/19) A-FIB/CHADSVASC A-FIB History Current/History of A-Fib/PAF?: Yes Current PO Anticoag Therapy: Yes Age/Risk Factor Scoring CHADSVASC: CHADSVASC Response (Comments) Value Age Risk Factor Age >/= 75 years old 2 Gender Risk Factor Female 1 Hx of HTN Yes 1 Total 4 GME ATTESTATION GME ATTESTATION My faculty preceptor for this patient encounter was physically present during the encounter and was fully available. All aspects of the patient interview, examination, medical decision making process, and medical care plan development were reviewed and approved by the faculty preceptor. The faculty preceptor is aware and concurs with the plan as stated in the body of this note and will attest to such by his/her cosignature. ATTENDING NOTE I examined Ms. Dent at 5:10 AM, reviewed Dr. Rice's note and agree with the findings as documented MAYLIN MERINO DO Aug 31, 2019 03:40 ASAF MENEZES MD Aug 31, 2019 06:54
[2019-08-31 05:00] VITALS: BP 157/73
[2019-08-31] MEDS: LEVOTHYROXINE 100MCG TABLET (0.1MG) PO SCH (05:39)
[2019-08-31 06:24] LABS: HEMATOCRIT 37.2 % (36.0-47.0); HEMOGLOBIN 11.8 g/dl (12.0-15.5); MEAN CORPUSCULAR HEMOGLOBIN 29.3 pg (27.0-33.0); MEAN CORPUSCULAR HGB CONC 31.7 g/dl (32.0-36.5); MEAN CORPUSCULAR VOLUME 92.3 fl (80.0-96.0); PLATELET COUNT, AUTOMATED 155 10^3/uL (150-450); RED BLOOD COUNT 4.03 10^6/uL (4.00-5.40); WHITE BLOOD COUNT 5.4 10^3/uL (4.0-10.0)
[2019-08-31 07:02] LABS: CALCIUM LEVEL 8.8 MG/DL (8.8-10.2); CREATININE FOR GFR 0.99 MG/DL (0.55-1.30); GLOMERULAR FILTRATION RATE 56.9 (>32); MAGNESIUM LEVEL 2.3 MG/DL (1.8-2.4); PERCENT SATURATION 29.7 % (13.2-45.0); POTASSIUM SERUM 4.1 MEQ/L (3.5-5.1)
[2019-08-31] MEDS: POTASSIUM CHLORIDE 10 MEQ SR TABLET PO SCH ×2 (08:19→21:08)
[2019-08-31] MEDS: PANTOPRAZOLE 40MG TAB (PROTONIX) PO SCH (08:19)
--- NOTE | 2019-08-31 08:19 | IPNPDOC ---
Text Note Date of Service The patient was seen on 08/31/19. NOTE SUBJECTIVE: Patient is seen at bedside on [address]. She mentioned that before she was transferred up from the ER she had another episode of bright red blood per rectum. Her hemoglobin has been stable this morning. She has decided that she will have a colonoscopy if she is able to take a different prep from GoLYTELY, potentially mag citrate or MiraLAX. She denies palpitations, chest pain, belly pain, shortness of breath, or bilateral leg swelling. She denies diarrhea, but d oes have a history of constipation. Her Pradaxa still on hold. OBJECTIVE VITAL SIGNS: See below GENERAL: Pleasant 84-year-old female laying in bed, no acute distress HEENT: Atraumatic normocephalic. Mucous membranes are moist. No conjunctival pallor NECK: No JVD, no masses, supple HEART: Regular rate and rhythm; no murmurs, gallops, or rubs LUNGS: Clear to auscultation bilaterally. No wheezes, rhonchi, or rales ABDOMINAL: Hyperactive bowel sounds present in all 4 quadrants. No distention, no pain to palpation. EXTREMITIES: No clubbing, cyanosis or edema NEUROLOGICAL: Spontaneously moves all 4 extremities, CN II-XII was intact, sensation intact throughout PSYCHOLOGICAL: Answers questions appropriately LABORATORY DATA: See below. MICROBIOLOGY: Please see below. IMAGING: Abdominal pelvis CT 08/31/2019 1. No evidence of acute abdominal or pelvic hemorrhage. 2. Scattered colonic diverticula changes without active inflammation. 3. Cholelithiasis. No biliary obstruction. 4. Large hiatal hernia ASSESSMENT: This is a 84-year-old female with a pertinent past medical history of atrial fibrillation on Pradaxa presenting today for painless rectal bleeding 1, previous admission in June for the same and at the time refused colonoscopy. PLAN: 1. Painless rectal bleeding 1. CT of the abdomen positive for scattered colonic diverticuli. Pradaxa on hold. Hemoglobin stable at 11.8, and currently hemodynamically stable. Continue clear liquid diet. She is willing to talk to GI (Dr. Villar consulted, appreciate his help) about potential colonoscopy if she can do a different prep (unable to tolerate GoLYTELY). 2. Paroxysmal atrial fibrillation. Hold Pradaxa due to problem 1. CHADS-Vasc:4 even though her HAS-BLED: 4, Benefits of anticoagulation outweighs risk of bleed and would benefit to continue anticoagulation on discharge. Follows up outpatient with Dr. Molina. Was previously on amiodarone but was discontinued due to bradycardia. Currently sinus rhythm does not need to be placed on telemetry. 3. Hypertension. Continue with home valsartan 40 mg twice a day. Will hold home Lasix at this current time, will consider adding back if Sys >160 4. GERD. Continue home Protonix 40 mg daily 5. Hyperlipidemia. Continue home Crestor 20 mg and Zetia 10mg qpm 6. Hypothyroidism. Continue home Synthroid 100mcg daily DVT PROPHYLAXIS: TEDs DISPOSITION: Pending colonoscopy. VS,Fishbone, I+O VS, Fishbone, I+O Laboratory Tests 08/30/19 22:56 08/31/19 03:09 08/31/19 06:10 Vital Signs Date Time Temp Pulse Resp B/P (MAP) Pulse Ox O2 Delivery O2 Flow Rate FiO2 08/31/19 05:00 96.6 64 18 157/73 (101) 98 Room Air I&O- Last 24 Hours up to 6 AM 08/31/19 06:00 Intake Total 360 ml Balance 360 ml GME ATTESTATION GME ATTESTATION My faculty preceptor for this patient encounter was physically present during the encounter and was fully available. All aspects of the patient interview, examination, medical decision making process, and medical care plan development were reviewed and approved by the faculty preceptor. The faculty preceptor is aware and concurs with the plan as stated in the body of this note and will attest to such by his/her cosignature. ISADORA SANCHEZ D.O. Aug 31, 2019 08:19
[2019-08-31] MEDS: VALSARTAN 40MG TABLET (DIOVAN) PO SCH ×2 (08:21→21:08)
[2019-08-31] MEDS ORDERED: POTASSIUM CHLORIDE 10 MEQ SR TABLET PO SCH (09:00)
[2019-08-31] MEDS ORDERED: PANTOPRAZOLE 40MG TAB (PROTONIX) PO SCH (09:00)
[2019-08-31] MEDS ORDERED: LEVOTHYROXINE 100MCG TABLET (0.1MG) PO SCH (09:00)
[2019-08-31] MEDS ORDERED: VALSARTAN 80 MG TAB (DIOVAN) PO SCH (09:00)
[2019-08-31 14:58] VITALS: BP 151/72
[2019-08-31 19:58] VITALS: BP 148/71
[2019-08-31] MEDS ORDERED: EZETIMIBE 10 MG TAB (ZETIA) PO SCH (21:00)
[2019-08-31] MEDS ORDERED: DOCUSATE SODIUM 100 MG CAP PO SCH (21:00)
[2019-08-31] MEDS ORDERED: ROSUVASTATIN 10 MG TAB (CRESTOR) PO SCH (21:00)
[2019-08-31] MEDS: EZETIMIBE 10 MG TAB (ZETIA) PO SCH (21:08)
[2019-08-31] MEDS: ROSUVASTATIN 10 MG TAB (CRESTOR) PO SCH (21:08)
[2019-08-31] MEDS: DOCUSATE SODIUM 100 MG CAP PO SCH (21:08)
[2019-09-01 05:40] VITALS: BP 123/58
[2019-09-01] MEDS: LEVOTHYROXINE 100MCG TABLET (0.1MG) PO SCH (05:49)
[2019-09-01] MEDS: ONDANSETRON 4MG/2ML VIAL (J2405) IV SCH ×3 (05:49→18:45)
[2019-09-01] MEDS ORDERED: ACETAMINOPHEN TAB 650MG DOSE (2X325MG) PO PRN (06:15)
[2019-09-01 06:43] LABS: BLOOD UREA NITROGEN 17 MG/DL (7-18); CALCIUM LEVEL 9.1 MG/DL (8.8-10.2); CARBON DIOXIDE LEVEL 28 MEQ/L (21-32); CHLORIDE LEVEL 108 MEQ/L (98-107); CREATININE FOR GFR 0.88 MG/DL (0.55-1.30); GLOMERULAR FILTRATION RATE > 60.0 (>32); GLUCOSE, FASTING 89 MG/DL (70-100); MAGNESIUM LEVEL 2.4 MG/DL (1.8-2.4); POTASSIUM SERUM 4.3 MEQ/L (3.5-5.1); SODIUM LEVEL 140 MEQ/L (136-145)
[2019-09-01] MEDS ORDERED: MOM 30ML SUSPENSION UDC PO ONE (08:00)
[2019-09-01] MEDS ORDERED: POLYETHYLENE GLYCOL (MIRALAX) 238GM BOTTLE PO ONE ×2 (10:00→19:00)
[2019-09-01] MEDS: PANTOPRAZOLE 40MG TAB (PROTONIX) PO SCH (10:21)
[2019-09-01] MEDS: POTASSIUM CHLORIDE 10 MEQ SR TABLET PO SCH ×2 (10:21→20:56)
[2019-09-01] MEDS: VALSARTAN 40MG TABLET (DIOVAN) PO SCH ×2 (10:22→20:55)
[2019-09-01 14:59] VITALS: BP 121/52
--- NOTE | 2019-09-01 17:29 | IPNPDOC ---
Text Note Date of Service The patient was seen on 09/01/19. NOTE SUBJECTIVE: Patient is seen at bedside on [address]. She had only a mild headache overnight. She will be going to the OR with Dr. Villar tomorrow for colonoscopy. She denies any recurrence of her primary blood per rectum. She denies palpitations, chest pain, belly pain, shortness of breath, or bilateral leg swelling. She denies diarrhea, but does have a history of constipation. Her Pradaxa still on hold. OBJECTIVE VITAL SIGNS: See below GENERAL: Pleasant 84-year-old female laying in bed, no acute distress HEENT: Atraumatic normocephalic. Mucous membranes are moist. No conjunctival pallor NECK: No JVD, no masses, supple HEART: Regular rate and rhythm; no murmurs, gallops, or rubs LUNGS: Clear to auscultation bilaterally. No wheezes, rhonchi, or rales ABDOMINAL: Hyperactive bowel sounds present in all 4 quadrants. No distention, no pain to palpation. EXTREMITIES: No clubbing, cyanosis or edema NEUROLOGICAL: Spontaneously moves all 4 extremities, CN II-XII was intact, sensation intact throughout PSYCHOLOGICAL: Answers questions appropriately LABORATORY DATA: See below. IMAGING: Abdominal pelvis CT 08/31/2019 1. No evidence of acute abdominal or pelvic hemorrhage. 2. Scattered colonic diverticula changes without active inflammation. 3. Cholelithiasis. No biliary obstruction. 4. Large hiatal hernia ASSESSMENT: This is a 84-year-old female with a pertinent past medical history of atrial fibrillation on Pradaxa presenting today for painless rectal bleeding 1, previous admission in June for the same and at the time refused colonoscopy. PLAN: 1. Painless rectal bleeding 1. CT of the abdomen positive for scattered colonic diverticuli. Pradaxa on hold. Hemoglobin stable at 11.8, and currently hemodynamically stable. Continue clear liquid diet. She is willing to undergo colonoscopy with Dr. Villar tomorrow with milk of magnesia and MiraLAX prep. 2. Paroxysmal atrial fibrillation. Hold Pradaxa due to problem 1. CHADS-Vasc:4 even though her HAS-BLED: 4, Benefits of anticoagulation outweighs risk of bleed and would benefit to continue anticoagulation on discharge. Follows up outpatient with Dr. Molina. Was previously on amiodarone but was discontinued due to bradycardia. Currently sinus rhythm does not need to be placed on telemetry. 3. Hypertension. Continue with home valsartan 40 mg twice a day. Will hold home Lasix at this current time, will consider adding back if Sys >160 4. GERD. Continue home Protonix 40 mg daily 5. Hyperlipidemia. Continue home Crestor 20 mg and Zetia 10mg qpm 6. Hypothyroidism. Continue home Synthroid 100 mcg daily DVT PROPHYLAXIS: TEDs DISPOSITION: Pending colonoscopy. VS,Fishbone, I+O VS, Fishbone, I+O Laboratory Tests 09/01/19 05:56 Vital Signs Date Time Temp Pulse Resp B/P (MAP) Pulse Ox O2 Delivery O2 Flow Rate FiO2 09/01/19 14:59 96.4 60 20 121/52 (75) 100 Room Air I&O- Last 24 Hours up to 6 AM 09/01/19 06:00 Intake Total 2160 ml Balance 2160 ml GME ATTESTATION GME ATTESTATION My faculty preceptor for this patient encounter was physically present during the encounter and was fully available. All aspects of the patient interview, examination, medical decision making process, and medical care plan development were reviewed and approved by the faculty preceptor. The faculty preceptor is aware and concurs with the plan as stated in the body of this note and will attest to such by his/her cosignature. ISADORA SANCHEZ D.O. Sep 01, 2019 17:28
[2019-09-01] MEDS: EZETIMIBE 10 MG TAB (ZETIA) PO SCH (20:56)
[2019-09-01] MEDS: DOCUSATE SODIUM 100 MG CAP PO SCH (20:56)
[2019-09-01] MEDS: ROSUVASTATIN 10 MG TAB (CRESTOR) PO SCH (20:56)
[2019-09-01 22:00] VITALS: BP 127/68
[2019-09-02] MEDS: ONDANSETRON 4MG/2ML VIAL (J2405) IV SCH ×2 (01:57→06:04)
[2019-09-02 06:00] VITALS: BP 125/66
[2019-09-02] MEDS: LEVOTHYROXINE 100MCG TABLET (0.1MG) PO SCH (06:03)
[2019-09-02 07:37] LABS: HEMATOCRIT 36.1 % (36.0-47.0); HEMOGLOBIN 11.9 g/dl (12.0-15.5); MEAN CORPUSCULAR HEMOGLOBIN 30.2 pg (27.0-33.0); MEAN CORPUSCULAR VOLUME 91.6 fl (80.0-96.0); PLATELET COUNT, AUTOMATED 163 10^3/uL (150-450); RED BLOOD COUNT 3.94 10^6/uL (4.00-5.40); WHITE BLOOD COUNT 4.5 10^3/uL (4.0-10.0)
[2019-09-02 07:48] LABS: CREATININE FOR GFR 1.01 MG/DL (0.55-1.30); GLOMERULAR FILTRATION RATE 55.6 (>32); MAGNESIUM LEVEL 2.4 MG/DL (1.8-2.4); POTASSIUM SERUM 4.4 MEQ/L (3.5-5.1)
[2019-09-02] MEDS: PANTOPRAZOLE 40MG TAB (PROTONIX) PO SCH (10:08)
[2019-09-02] MEDS: POTASSIUM CHLORIDE 10 MEQ SR TABLET PO SCH ×2 (10:08→20:51)
[2019-09-02] MEDS: VALSARTAN 40MG TABLET (DIOVAN) PO SCH ×2 (10:08→20:50)
--- NOTE | 2019-09-02 10:24 | IPNPDOC ---
Text Note Date of Service The patient was seen on 09/02/19. NOTE SUBJECTIVE: Patient is seen at bedside on [address]. No overnight events. She will be going to the OR with Dr. Villar this afternoon for colonoscopy. She denies any recurrence of her bright red blood per rectum. She denies palpitations, chest pain, belly pain, shortness of breath, diarrhea, fevers, chills, or bilateral leg swelling. Her Pradaxa is still on hold. OBJECTIVE VITAL SIGNS: See below GENERAL: Pleasant 84-year-old female laying in bed, no acute distress HEENT: Atraumatic normocephalic. Mucous membranes are moist. No conjunctival pallor NECK: No JVD, no masses, supple HEART: Regular rate and rhythm; no murmurs, gallops, or rubs LUNGS: Clear to auscultation bilaterally. No wheezes, rhonchi, or rales ABDOMINAL: Hyperactive bowel sounds present in all 4 quadrants. No distention, no pain to palpation. EXTREMITIES: No clubbing, cyanosis or edema NEUROLOGICAL: Spontaneously moves all 4 extremities, CN II-XII was intact, sensation intact throughout PSYCHOLOGICAL: Answers questions appropriately LABORATORY DATA: See below. IMAGING: Abdominal pelvis CT 08/31/2019 1. No evidence of acute abdominal or pelvic hemorrhage. 2. Scattered colonic diverticula changes without active inflammation. 3. Cholelithiasis. No biliary obstruction. 4. Large hiatal hernia ASSESSMENT: This is a 84-year-old female with a pertinent past medical history of atrial fibrillation on Pradaxa presenting today for painless rectal bleeding 1, previous admission in June for the same and at the time refused colonoscopy. PLAN: 1. Painless rectal bleeding 1. CT of the abdomen positive for scattered colonic diverticuli. Pradaxa on hold. Hemoglobin stable at 11.9, and currently hemodynamically stable. NPO for now, colonoscopy this afternoon with Dr. Villar. 2. Paroxysmal atrial fibrillation. Hold Pradaxa due to problem 1. CHADS-Vasc:4 even though her HAS-BLED: 4, Benefits of anticoagulation outweighs risk of bleed and would benefit to continue anticoagulation on discharge. Follows up outpatient with Dr. Molina. Was previously on amiodarone but was discontinued due to bradycardia. Currently sinus rhythm does not need to be placed on telemetry. 3. Hypertension. Blood pressure in an acceptable range. Continue with home valsartan 40 mg twice a day. Will hold home Lasix at this current time, will consider adding back if Sys >160 4. GERD. Continue home Protonix 40 mg daily 5. Hyperlipidemia. Continue home Crestor 20 mg and Zetia 10mg qpm 6. Hypothyroidism. Continue home Synthroid 100 mcg daily DVT PROPHYLAXIS: TEDs DISPOSITION: Probable DC home tomorrow VS,Fishbone, I+O VS, Fishbone, I+O Laboratory Tests 09/02/19 07:14 Vital Signs Date Time Temp Pulse Resp B/P (MAP) Pulse Ox O2 Delivery O2 Flow Rate FiO2 09/02/19 10:08 127/65 09/02/19 06:00 98.2 63 18 96 Room Air I&O- Last 24 Hours up to 6 AM 09/02/19 06:00 Intake Total 2120 ml Balance 2120 ml GME ATTESTATION GME ATTESTATION My faculty preceptor for this patient encounter was physically present during the encounter and was fully available. All aspects of the patient interview, examination, medical decision making process, and medical care plan development were reviewed and approved by the faculty preceptor. The faculty preceptor is aware and concurs with the plan as stated in the body of this note and will attest to such by his/her cosignature. ISADORA SANCHEZ D.O. Sep 02, 2019 10:23
[2019-09-02 14:00] VITALS: BP 129/65
[2019-09-02] MEDS ORDERED: LIDOCAINE 2% INJ 100 MG/5 ML SDV (FOR ANES.) As Ordered ONE (15:34)
[2019-09-02] MEDS ORDERED: PROPOFOL 200 MG/20 ML VIAL As Ordered ONE (15:34)
[2019-09-02] MEDS ORDERED: GLYCOPYRROLATE INJ 0.2 MG/ML 2 ML VIAL As Ordered ONE (15:48)
[2019-09-02] MEDS ORDERED: ATROPINE SULF 0.4 MG/ML 1ML VIAL (J0461) As Ordered ONE (15:48)
--- NOTE | 2019-09-02 16:12 | ROOR ---
Patient Name: Sylwia Dent Procedure Date: 09/02/2019 2:42 PM Date of : 1935 Age: 84 Gender: Female Note Status: Finalized Procedure: Colonoscopy Indications: Hematochezia, Rectal bleeding Providers: Phil VILLAR MD Referring MD: 2. Inpatient 2. Inpatient, Erasmo PETERSEN MD, Osvaldo Molina MD Requesting Provider: Medicines: Monitored Anesthesia Care Complications: No immediate complications. Procedure: Pre-Anesthesia Assessment: - The heart rate, respiratory rate, oxygen saturations, blood pressure, adequacy of pulmonary ventilation, and response to care were monitored throughout the procedure. The Colonoscope was introduced through the anus and advanced to 5 cm into the ileum. The colonoscopy was performed without difficulty. The patient tolerated the procedure well. The quality of the bowel preparation was adequate. Findings: The perianal and digital rectal examinations were normal. Non-thrombosed prolapsed internal hemorrhoids were found during retroflexion. The hemorrhoids were moderate. Multiple small-mouthed diverticula were found in the sigmoid colon. The exam was otherwise without abnormality on direct and retroflexion views. Retroflexion in the right colon was performed. The terminal ileum appeared normal. Impression: - Non-thrombosed internal hemorrhoids. - Moderate diverticulosis in the sigmoid colon. - The colon and termianl ileum are otherwise normal on direct and retroflexion views. - No specimens collected. Recommendation: - Use fiber, for example Citrucel, Fibercon, Konsyl or Metamucil. - Miralax 1 capful (17 grams) in 8 ounces of water PO daily. - HB remained stable/normal. I suspect bleeding was from hemorrhoids. This has resolved. - From my standpoint she can resume anticoagulation. Phil Villar MD Phil VILLAR MD 09/02/2019 4:11:42 PM Electronically signed by Phil VILLAR MD Number of Addenda: 0 Note Initiated On: 09/02/2019 2:42 PM Estimated Blood Loss: Estimated blood loss: none.
[2019-09-02] MEDS ORDERED: LR 1,000 ML IV SCH (16:15)
[2019-09-02 17:15] VITALS: BP 149/76
[2019-09-02 17:45] VITALS: BP 140/75
[2019-09-02] MEDS: ROSUVASTATIN 10 MG TAB (CRESTOR) PO SCH (20:50)
[2019-09-02] MEDS: DOCUSATE SODIUM 100 MG CAP PO SCH (20:50)
[2019-09-02] MEDS: EZETIMIBE 10 MG TAB (ZETIA) PO SCH (20:51)
[2019-09-02 22:00] VITALS: BP 125/55
[2019-09-03] MEDS: LEVOTHYROXINE 100MCG TABLET (0.1MG) PO SCH (05:47)
[2019-09-03 06:00] VITALS: BP 124/56
[2019-09-03 06:54] LABS: HEMATOCRIT 35.5 % (36.0-47.0); HEMOGLOBIN 11.6 g/dl (12.0-15.5); MEAN CORPUSCULAR HEMOGLOBIN 30.1 pg (27.0-33.0); MEAN CORPUSCULAR HGB CONC 32.7 g/dl (32.0-36.5); PLATELET COUNT, AUTOMATED 147 10^3/uL (150-450); RED BLOOD COUNT 3.86 10^6/uL (4.00-5.40); WHITE BLOOD COUNT 5.2 10^3/uL (4.0-10.0)
[2019-09-03 07:23] LABS: CALCIUM LEVEL 8.7 MG/DL (8.8-10.2); CREATININE FOR GFR 1.09 MG/DL (0.55-1.30); GLOMERULAR FILTRATION RATE 50.9 (>32); MAGNESIUM LEVEL 2.3 MG/DL (1.8-2.4); POTASSIUM SERUM 4.4 MEQ/L (3.5-5.1)
[2019-09-03 08:07] VITALS: BP 124/56
[2019-09-03] MEDS: POTASSIUM CHLORIDE 10 MEQ SR TABLET PO SCH (08:07)
[2019-09-03] MEDS: VALSARTAN 40MG TABLET (DIOVAN) PO SCH (08:07)
[2019-09-03] MEDS: PANTOPRAZOLE 40MG TAB (PROTONIX) PO SCH (08:07)
[2019-09-03] MEDS ORDERED: METAMUCIL (PSYLLIUM) PACKET PO SCH (09:00)
[2019-09-03] MEDS ORDERED: MIRALAX *UNIT DOSE* 17GM PACKET PO SCH (09:00)
[2019-09-03] MEDS ORDERED: MIRA3350 PO (11:09)
[2019-09-03] MEDS ORDERED: META0.52 PO (11:09)
--- NOTE | 2019-09-03 15:38 | DS.PDOC ---
Discharge Summary General Date of Admission Aug 31, 2019 at 02:20 Date of Discharge 09/03/19 Specialist/Consultants Involve: ARLEEN TORIBIO MD Discharge Summary PROCEDURES PERFORMED DURING STAY: Colonoscopy ADMITTING DIAGNOSES: Lower GI bleed DISCHARGE DIAGNOSES: hemorrhoidal bleeding COMPLICATIONS/CHIEF COMPLAINT: Lower Gi Bleed. HISTORY OF PRESENT ILLNESS: This is a 84-year-old female with a pertinent past medical history of atrial fibrillation on Pradaxa presenting today for painless rectal bleeding 1. Patient states that earlier this evening when she was trying to urinate she noticed in her toilet bowl bright red blood. She noticed when she wiped there was blood in the tissue paper. She denies having any nausea, vomiting, diarrhea or abdominal pain. She states this is similar to her previous episode when she was admitted early June. She states she is compliant with her Pradaxa 75 mg twice a day, which was the reduced does she was discharged on last time. She denies having any colonoscopies in the past and really does not want them Otherwise patient denies weight loss, hair loss, headache, visual changes, chest pain, shortness of breath, cough, , muscle aches, worsening arthritis and change in mood. She does endorse constipation and she currently does take stool softener HOSPITAL COURSE: # Painless rectal bleeding 1. CT of the abdomen positive for scattered colonic diverticuli. Pradaxa on hold. Hemoglobin stable at 11.9, and currently hemodynamically stable. Underwent colonoscopy with no acute findings. #Paroxysmal atrial fibrillation. As per GI - ok to resume a/c. #Hypertension - resuming home medications - follow up o/p with PCP #GERD. Continue home Protonix 40 mg daily #Hyperlipidemia. Continue home Crestor 20 mg and Zetia 10mg qpm #Hypothyroidism. Continue home Synthroid 100 mcg daily DISCHARGE MEDICATIONS: Please see below. ALLERGIES: Please see below. Physical Examination VITAL SIGNS: See below GENERAL: NAD, sitting comfortably in chair HEENT: NC/AT NECK: No JVD, no masses, supple HEART: Regular rate and rhythm; no murmurs, gallops, or rubs LUNGS: Clear to auscultation bilaterally. No wheezes, rhonchi, or rales ABDOMINAL: Hyperactive bowel sounds present in all 4 quadrants. No distention, no pain to palpation. EXTREMITIES: No clubbing, cyanosis or edema NEUROLOGICAL: Spontaneously moves all 4 extremities, CN II-XII was intact, sensation intact throughout PSYCHOLOGICAL: Answers questions appropriately LABORATORY DATA: See below. IMAGING: Abdominal pelvis CT 08/31/2019 1. No evidence of acute abdominal or pelvic hemorrhage. 2. Scattered colonic diverticula changes without active inflammation. 3. Cholelithiasis. No biliary obstruction. 4. Large hiatal hernia LABORATORY DATA: Please see below. PROGNOSIS: Stable ACTIVITY: [As tolerated]. DIET: high fiber, low salt DISPOSITION: 01 Home, Self-Care. DISCHARGE INSTRUCTIONS: 1. Follow up PCP in 3-5 days DISCHARGE CONDITION: [Stable]. TIME SPENT ON DISCHARGE: 35 minutes. Vital Signs/I&Os Vital Signs Date Time Temp Pulse Resp B/P (MAP) Pulse Ox O2 Delivery O2 Flow Rate FiO2 09/03/19 08:07 124/56 09/03/19 06:00 98.4 68 97 97 Room Air I&O- Last 24 Hours up to 6 AM 09/03/19 06:00 Intake Total 1065 ml Output Total 0 ml Balance 1065 ml Laboratory Data Labs 24H Laboratory Tests 2 09/03/19 06:02: Nucleated Red Blood Cells % (auto) 0.0, Anion Gap 5L, Glomerular Filtration Rate 50.9, Calcium Level 8.7L, Magnesium Level 2.3 CBC/BMP Laboratory Tests 09/03/19 06:02 Discharge Medications Scheduled Dabigatran Etexilate Mesylate (Pradaxa) 75 Mg Capsule, 75 MG PO BID, (Reported) Docusate Sodium (Docusate Sodium) 100 Mg Capsule, 100 MG PO QHS, (Reported) Ezetimibe (Ezetimibe) 10 Mg Tablet, 10 MG PO QPM, (Reported) DINNERTIME Furosemide (Furosemide) 40 Mg Tablet, 40 MG PO DAILY, (Reported) Levothyroxine Sodium (Synthroid) 100 Mcg Tablet, 100 MCG PO DAILY, (Reported) Pantoprazole Sodium (Pantoprazole Sodium) 40 Mg Tablet.dr, 40 MG PO DAILY, (Reported) Polyethylene Glycol 3350 (Miralax) 119 Gm Powder, 17 GRAM PO DAILY for constipation dissolve in water Potassium Chloride (Potassium Chloride) 10 Meq Tablet.er, 10 MEQ PO BID, (Reported) Psyllium Husk (Metamucil) 0.4 Gm Capsule, 0.4 GRAM PO BID Rosuvastatin Calcium (Rosuvastatin Calcium) 20 Mg Tablet, 20 MG PO QPM, (Reported) DINNERTIME Valsartan (Valsartan) 40 Mg Tablet, 40 MG PO BID, (Reported) Scheduled PRN Acetaminophen (Tylenol Extra Strength) 500 Mg Tablet, 1,000 MG PO Q8H PRN for PAIN, (Reported) Allergies Coded Allergies: No Known Allergies (Unverified , 07/06/19) EFFIE BOYER MD Sep 03, 2019 15:33
== END 2019-09-03 12:45 | disposition home or self-care (01) | DRG 394 ==
LOC: M ED 22:32 → M ED INP 08-31 02:20 → M MS5PR 08-31 04:35
PROVIDERS: ADMIT Internal Medicine; ATTEND Internal Medicine
PROC: 0DJD8ZZ Inspection of Lower Intestinal Tract, Via Natural or Artificial Opening Endoscopic (ICD-10-PCS; principal; 2019-09-02 11:00)
DX: K64.8 Other hemorrhoids (principal); K62.5 Hemorrhage of anus and rectum; I48.0 Paroxysmal atrial fibrillation; I10 Essential (primary) hypertension; K21.9 Gastro-esophageal reflux disease without esophagitis; E78.5 Hyperlipidemia, unspecified; E03.9 Hypothyroidism, unspecified; Z90.79 Acquired absence of other genital organ(s); Z95.5 Presence of coronary angioplasty implant and graft; I25.10 Atherosclerotic heart disease of native coronary artery without angina pectoris; Z66 Do not resuscitate

== ENCOUNTER → 2019-10-30 | Outpatient (REF) | payer MEDICARE ==
[~2019-10-30] MED LIST changes: +META0.52 PO; +MIRA3350 PO
[2019-10-30 13:20] LABS: BASO # 0.1 10^3/uL (0.0-0.2); BASO % 1.1 % (0.0-1.0); EOS # 0.2 10^3/uL (0.0-0.5); EOS % 3.6 % (0.0-3.0); HEMATOCRIT 40.5 % (36.0-47.0); HEMOGLOBIN 12.7 g/dl (12.0-15.5); LYMPH # 1.1 10^3/uL (1.5-5.0); LYMPH % 20.1 % (24.0-44.0); MEAN CORPUSCULAR HEMOGLOBIN 29.5 pg (27.0-33.0); MEAN CORPUSCULAR HGB CONC 31.4 g/dl (32.0-36.5); MEAN CORPUSCULAR VOLUME 94.2 fl (80.0-96.0); MONO # 0.6 10^3/uL (0.0-0.8); MONO % 11.6 % (0.0-5.0); NEUTROPHILS # 3.5 10^3/uL (1.5-8.5); NEUTROPHILS % 63.2 % (36.0-66.0); PLATELET COUNT, AUTOMATED 155 10^3/uL (150-450); WHITE BLOOD COUNT 5.5 10^3/uL (4.0-10.0)
[2019-10-30 13:33] LABS: CALCIUM LEVEL 9.1 MG/DL (8.8-10.2); CHOLESTEROL RISK RATIO 2.095 (<5); CREATININE FOR GFR 1.22 MG/DL (0.55-1.30); GLOMERULAR FILTRATION RATE 44.7 (>32); POTASSIUM SERUM 4.4 MEQ/L (3.5-5.1); THYROID STIMULATING HORMONE 0.102 uIU/ML (0.358-3.740)
[2019-10-30 13:40] LABS: HEMOGLOBIN A1c 6.3 %
== END ==
LOC: M SFHCLERA 09:14
PROVIDERS: ATTEND Family Medicine
DX: I12.9 Hypertensive chronic kidney disease with stage 1 through stage 4 chronic kidney disease, or unspecified chronic kidney disease (principal); E78.5 Hyperlipidemia, unspecified; K57.90 Diverticulosis of intestine, part unspecified, without perforation or abscess without bleeding; E03.8 Other specified hypothyroidism; I25.10 Atherosclerotic heart disease of native coronary artery without angina pectoris; N18.3 Chronic kidney disease, stage 3 (moderate); R73.01 Impaired fasting glucose

== ENCOUNTER → 2020-01-23 | Outpatient (REF) | payer MEDICARE | LOC: M SFHCLERA 10:01 | PROVIDERS: ATTEND Family Medicine | DX: E03.8 Other specified hypothyroidism (principal) ==

== ENCOUNTER → 2020-12-03 | Outpatient (CLI) | payer MEDICARE ==
[~2020-12-03] MED LIST changes: +PANT40TA29; +PANT40TA29 PO; -PANT40TA3; -PANT40TA3 PO
[2020-12-03 11:43] LABS: BASO # 0.1 10^3/uL (0.0-0.2); EOS # 0.2 10^3/uL (0.0-0.5); EOS % 2.4 % (0.0-3.0); HEMATOCRIT 44.3 % (36.0-47.0); HEMOGLOBIN 13.9 g/dl (12.0-15.5); LYMPH # 1.2 10^3/uL (1.5-5.0); LYMPH % 18.9 % (24.0-44.0); MEAN CORPUSCULAR HEMOGLOBIN 29.3 pg (27.0-33.0); MEAN CORPUSCULAR HGB CONC 31.4 g/dl (32.0-36.5); MEAN CORPUSCULAR VOLUME 93.5 fl (80.0-96.0); MONO # 0.8 10^3/uL (0.0-0.8); MONO % 12.4 % (2.0-8.0); NEUTROPHILS % 65.1 % (36.0-66.0); PLATELET COUNT, AUTOMATED 173 10^3/uL (150-450); RED BLOOD COUNT 4.74 10^6/uL (4.00-5.40); WHITE BLOOD COUNT 6.2 10^3/uL (4.0-10.0)
[2020-12-03 12:54] LABS: CALCIUM LEVEL 9.3 MG/DL (8.8-10.2); CHOLESTEROL RISK RATIO 2.212 (<5); CREATININE FOR GFR 1.28 MG/DL (0.55-1.30); GLOMERULAR FILTRATION RATE 42.2 (>32); THYROID STIMULATING HORMONE 3.69 uIU/ML (0.358-3.740)
== END ==
LOC: M WUC 09:19
PROVIDERS: ATTEND Family Medicine
DX: E03.8 Other specified hypothyroidism (principal); I10 Essential (primary) hypertension; E78.5 Hyperlipidemia, unspecified

== ENCOUNTER → 2021-03-18 | Outpatient (CLI) | payer MEDICARE ==
[~2021-03-18] MED LIST changes: -DOCU-129 PO; +DOCU-153 PO
== END ==
LOC: M WUC 09:12
PROVIDERS: ATTEND Family Medicine
DX: E03.9 Hypothyroidism, unspecified (principal)

== ENCOUNTER → 2021-04-08 | Outpatient (CLI) | payer MEDICARE | LOC: M WUC 10:24 | PROVIDERS: ATTEND Family Medicine | DX: E03.9 Hypothyroidism, unspecified (principal) ==

== ENCOUNTER → 2021-05-30 | Outpatient (CLI) | payer MEDICARE ==
--- NOTE | 2021-05-30 12:32 | REP ---
INDICATION: PVD EVAL FOR PAD. COMPARISON: None. TECHNIQUE: Bilateral lower extremity arterial Doppler ultrasound evaluation. FINDINGS: Ankle brachial indices are normal measured at 1.0 on the right and 1.1 on the left. Relatively noncompressible vessels are encountered however. Biphasic arterial Doppler waveforms are noted throughout the lower extremity arterial tree bilaterally. No high-grade stenosis or occlusion is seen. Moderate plaquing is observed. Right lower extremity arterial Doppler velocity chart: Right EXCEPTIONAL NEEDS TEACHER PSV 53 cm/S Profundal 47 Proximal SFA 55 Mid SFA 58 Distal SFA 52 Popliteal 32/54 Proximal HIRAM 46 Tibial-peroneal trunk 24 Proximal ROOM SERVICE MANAGER 32 Distal ROOM SERVICE MANAGER 49 Distal HIRAM 47 Left lower extremity arterial Doppler velocity chart: Left EXCEPTIONAL NEEDS TEACHER PSV 50 cm/S Profundal 46 Proximal SFA 70 Mid SFA 51 Distal SFA 57 Popliteal 49 Proximal HIRAM 63 Tibial-peroneal trunk 42 Proximal ROOM SERVICE MANAGER 50 Distal ROOM SERVICE MANAGER 66 Distal HIRAM 67 IMPRESSION: Moderate atherosclerotic plaquing. No high-grade stenosis or occlusion seen. <Electronically signed by Dung Gallego > 05/30/21 3125
== END ==
LOC: M RAD 11:20
PROVIDERS: ATTEND Family Medicine
DX: I70.203 Unspecified atherosclerosis of native arteries of extremities, bilateral legs (principal)

== ENCOUNTER → 2021-07-18 | Outpatient (CLI) | payer MEDICARE ==
[2021-07-18 16:41] LABS: CALCIUM LEVEL 9.4 MG/DL (8.8-10.2); CREATININE FOR GFR 1.25 MG/DL (0.55-1.30); GLOMERULAR FILTRATION RATE 43.3 (>32); POTASSIUM SERUM 4.4 MEQ/L (3.5-5.1)
== END ==
LOC: M WUC 10:15
PROVIDERS: ATTEND Family Medicine
DX: M79.89 Other specified soft tissue disorders (principal)

== ENCOUNTER → 2021-12-02 | Outpatient (CLI) | payer MEDICARE ==
[2021-12-02 13:52] LABS: CALCIUM LEVEL 9.3 MG/DL (8.8-10.2); CREATININE FOR GFR 1.32 MG/DL (0.55-1.30); GLOMERULAR FILTRATION RATE 40.6 (>32); POTASSIUM SERUM 4.3 MEQ/L (3.5-5.1); THYROID STIMULATING HORMONE 13.3 uIU/ML (0.358-3.740)
== END ==
LOC: M WUC 10:13
PROVIDERS: ATTEND Family Medicine
DX: E03.9 Hypothyroidism, unspecified (principal); I10 Essential (primary) hypertension

== ENCOUNTER → 2022-01-20 | Outpatient (CLI) | payer MEDICARE ==
[2022-01-20 13:03] LABS: HEMATOCRIT 39.4 % (36.0-47.0); HEMOGLOBIN 12.7 g/dl (12.0-15.5); MEAN CORPUSCULAR HEMOGLOBIN 30.5 pg (27.0-33.0); MEAN CORPUSCULAR HGB CONC 32.2 g/dl (32.0-36.5); MEAN CORPUSCULAR VOLUME 94.7 fl (80.0-96.0); PLATELET COUNT, AUTOMATED 154 10^3/uL (150-450); RED BLOOD COUNT 4.16 10^6/uL (4.00-5.40); WHITE BLOOD COUNT 6.5 10^3/uL (4.0-10.0)
== END ==
LOC: M WUC 09:48
PROVIDERS: ATTEND Nurse Practitioner Family
DX: I48.0 Paroxysmal atrial fibrillation (principal)

== ENCOUNTER → 2022-03-10 | Outpatient (REF) | payer MEDICARE | LOC: M WUC 12:06 | PROVIDERS: ATTEND Family Medicine | DX: E03.8 Other specified hypothyroidism (principal) ==

== ENCOUNTER → 2022-05-26 | Outpatient (CLI) | payer MEDICARE ==
[2022-05-26 17:26] LABS: CALCIUM LEVEL 9.7 MG/DL (8.8-10.2); CREATININE FOR GFR 1.26 MG/DL (0.55-1.30); GLOMERULAR FILTRATION RATE 42.9 (>32); MAGNESIUM LEVEL 2.4 MG/DL (1.8-2.4)
== END ==
LOC: M WUC 10:46
PROVIDERS: ATTEND Family Medicine
DX: M79.89 Other specified soft tissue disorders (principal)

== ENCOUNTER → 2023-04-06 | Outpatient (CLI) | payer MEDICARE ==
[~2023-04-06] MED LIST changes: -ROSU20TA5; -ROSU20TA5 PO; +ROSU20TA61; +ROSU20TA61 PO
[2023-04-06 12:08] LABS: ALBUMIN 3.2 G/DL (3.2-5.2); BILIRUBIN,TOTAL 0.6 MG/DL (0.3-1.2); CHOLESTEROL RISK RATIO 2.5 (<5); GLOMERULAR FILTRATION RATE 55.8 (>32); HDL CHOLESTEROL 71.5 MG/DL (>40); LDL CHOLESTEROL 93.3 MG/DL (<100); NON-HDL-C 107.5 MG/DL; TOTAL PROTEIN 6.2 G/DL (5.7-8.2)
[2023-04-06 12:09] LABS: THYROID STIMULATING HORMONE 2.506 uIU/ML (0.55-4.78)
== END ==
LOC: M WUC 09:59
PROVIDERS: ATTEND Family Medicine
DX: E78.5 Hyperlipidemia, unspecified (principal); E03.9 Hypothyroidism, unspecified

== ENCOUNTER → 2023-07-13 | Outpatient (REF) | payer MEDICARE ==
[2023-07-13 18:39] LABS: PERCENT SATURATION 32.5 % (13.2-45.0)
[2023-07-13 18:43] LABS: FERRITIN 22.3 NG/ML (7.3-270.7)
[2023-07-13 18:45] LABS: URIC ACID 7.6 MG/DL (3.1-7.8)
== END ==
LOC: M LAB REF 16:17
PROVIDERS: ATTEND Internal Medicine
DX: N18.9 Chronic kidney disease, unspecified (principal); D64.9 Anemia, unspecified

== ENCOUNTER 2023-08-22 17:54 | Emergency (ER) | payer MEDICARE ==
[2023-08-22 18:59] LABS: BASO % 0.8 % (0.0-1.0); EOS # 0.1 10^3/uL (0.0-0.5); EOS % 1.9 % (0.0-3.0); HEMATOCRIT 37.4 % (36.0-47.0); HEMOGLOBIN 12.4 g/dl (12.0-15.5); LYMPH # 1.2 10^3/uL (1.5-5.0); LYMPH % 23.3 % (24.0-44.0); MEAN CORPUSCULAR HEMOGLOBIN 29.8 pg (27.0-33.0); MEAN CORPUSCULAR HGB CONC 33.2 g/dl (32.0-36.5); MEAN CORPUSCULAR VOLUME 89.9 fl (80.0-96.0); MONO # 0.7 10^3/uL (0.0-0.8); MONO % 13.4 % (2.0-8.0); NEUTROPHILS # 3.2 10^3/uL (1.5-8.5); NEUTROPHILS % 60.2 % (36.0-66.0); PLATELET COUNT, AUTOMATED 162 10^3/uL (150-450); RED BLOOD COUNT 4.16 10^6/uL (4.00-5.40); WHITE BLOOD COUNT 5.2 10^3/uL (4.0-10.0)
[2023-08-22 19:02] LABS: CALCIUM LEVEL 8.3 MG/DL (8.3-10.6); CREATININE FOR GFR 1.1 MG/DL (0.55-1.30); GLOMERULAR FILTRATION RATE 49.9 (>32); POTASSIUM SERUM 3.4 MMOL/L (3.5-5.1)
[2023-08-22] MEDS ORDERED: ANUSOL HC 25MG SUPP PR ONE (19:25)
[2023-08-22 21:09] VITALS: O2SAT 99
[2023-08-22 21:15] VITALS: BP 127/74; TEMP 98.5
[2023-08-22] MEDS ORDERED: ANUS25SU PR (21:34)
== END 2023-08-22 22:04 | disposition home or self-care (01) ==
LOC: M ED 17:54 → EDSEX 17:54 → EDBD 17:54 → M ED 22:04
DX: K64.8 Other hemorrhoids (principal); K62.5 Hemorrhage of anus and rectum; I10 Essential (primary) hypertension; E78.5 Hyperlipidemia, unspecified; E03.9 Hypothyroidism, unspecified; F10.10 Alcohol abuse, uncomplicated; Z86.79 Personal history of other diseases of the circulatory system; Z79.1 Long term (current) use of non-steroidal anti-inflammatories (NSAID); Z79.890 Hormone replacement therapy; Z79.84 Long term (current) use of oral hypoglycemic drugs; Z79.899 Other long term (current) drug therapy

== ENCOUNTER → 2024-04-04 | Outpatient (REF) | payer MEDICARE ==
[~2024-04-04] MED LIST changes: +ANUS25SU PR; -DOCU-153 PO; +STOO100C30 PO
[2024-04-04 14:45] LABS: PERCENT SATURATION 23.9 % (13.2-45.0)
[2024-04-04 14:47] LABS: FERRITIN 28.1 NG/ML (7.3-270.7)
== END ==
LOC: M LAB REF 13:08
PROVIDERS: ATTEND Internal Medicine
DX: E61.1 Iron deficiency (principal)

== ENCOUNTER 2024-06-23 12:46 | Outpatient (CLI) | payer MEDICARE ==
[~2024-06-23] VITALS: Ht 160 cm; Wt 77.7 kg
[~2024-06-23 12:46] MED LIST changes: +ALBUTEROL SULFATE 2.5MG/0.5ML INH NEB SOLN INH PRN; +EPINEPHrine INJ 1 MG/ML 1ML AMP IM PRN; -ROSU20TA61; -ROSU20TA61 PO; +ROSU20TA86; +ROSU20TA86 PO; +diphenhydrAMINE 50MG/ML VIAL IV PRN; +methylPREDNISolone 125MG 2ML VIAL IV PRN
[2024-06-23 13:00] VITALS: BP 135/72; O2SAT 98
[2024-06-23] MEDS ORDERED: NS 1,000 ML IV SCH (13:00)
[2024-06-23] MEDS: IRON SUCROSE 300 MG in NS 250 ML OVER 90 MIN. IV ONE (13:28)
[2024-06-23 15:10] VITALS: BP 149/88; O2SAT 96
== END 2024-06-23 15:10 ==
LOC: M INFU 12:46
PROVIDERS: ATTEND Internal Medicine
DX: E61.1 Iron deficiency (principal)
CPT/HCPCS: 96365; 96366; J1756

== ENCOUNTER 2024-06-30 13:05 | Outpatient (CLI) | payer MEDICARE ==
[~2024-06-30] VITALS: Ht 160 cm; Wt 78.0 kg
[2024-06-30 13:05] VITALS: BP 138/85; O2SAT 98
[~2024-06-30 13:05] MED LIST changes: +NS 1,000 ML IV SCH
[2024-06-30] MEDS: IRON SUCROSE 300 MG in NS 250 ML OVER 90 MIN. IV ONE (13:33)
[2024-06-30 15:05] VITALS: BP 139/67; O2SAT 98
== END 2024-06-30 15:15 ==
LOC: M INFU 13:05
PROVIDERS: ATTEND Internal Medicine
DX: E61.1 Iron deficiency (principal)
CPT/HCPCS: 96365; J1756

== ENCOUNTER 2024-10-22 13:32 | Inpatient (IN) | payer MEDICARE ==
[~2024-10-22] VITALS: Ht 160 cm; Wt 78.8 kg
[~2024-10-22 13:32] MED LIST changes: -ALBUTEROL SULFATE 2.5MG/0.5ML INH NEB SOLN INH PRN; -EPINEPHrine INJ 1 MG/ML 1ML AMP IM PRN; -NS 1,000 ML IV SCH; -diphenhydrAMINE 50MG/ML VIAL IV PRN; -methylPREDNISolone 125MG 2ML VIAL IV PRN
[2024-10-22] MEDS: [UNRECOGNIZED DRUG - OTHER] IV STA (14:07)
[2024-10-22] MEDS: NS 0.9% IV STA (14:07)
[2024-10-22 14:16] LABS: VENOUS BASE EXCESS 3.1 (-2.0-2.0); VENOUS HCO3 29.6 MMOL/L (23.0-27.0); VENOUS O2 SATURATION 67.7 % (60.0-80.0); VENOUS PARTIAL PRESSURE CO2 52.4 mmHg (38.0-50.0); VENOUS PARTIAL PRESSURE O2 35.2 mmHg (30.0-50.0); VENOUS STANDARD HCO3 26.4 MMOL/L; VENOUS TOTAL CO2 31.2 MMOL/L (24.0-28.0)
[2024-10-22 14:24] LABS: BASO % 0.3 % (0.0-1.0); HEMATOCRIT 41.8 % (36.0-47.0); HEMOGLOBIN 14.1 g/dl (12.0-15.5); LYMPH # 0.4 10^3/uL (1.5-5.0); LYMPH % 4.4 % (24.0-44.0); MEAN CORPUSCULAR HEMOGLOBIN 30.6 pg (27.0-33.0); MEAN CORPUSCULAR HGB CONC 33.7 g/dl (32.0-36.5); MEAN CORPUSCULAR VOLUME 90.7 fl (80.0-96.0); MONO # 1.2 10^3/uL (0.0-0.8); MONO % 12.4 % (2.0-8.0); NEUTROPHILS # 7.7 10^3/uL (1.5-8.5); NEUTROPHILS % 82.6 % (36.0-66.0); PLATELET COUNT, AUTOMATED 128 10^3/uL (150-450); RED BLOOD COUNT 4.61 10^6/uL (4.00-5.40); WHITE BLOOD COUNT 9.3 10^3/uL (4.0-10.0)
[2024-10-22 14:46] LABS: CK-MB VALUE MASS 18.9 NG/ML (<3.6); ETHYL ALCOHOL (ETHANOL) < 0.003 % (0.000-0.010)
[2024-10-22 14:47] LABS: ALBUMIN 3.3 G/DL (3.2-5.2); ALKALINE PHOSPHATASE 65 U/L (35-104); ALT/SGPT 34 U/L (7.0-40); AST/SGOT 137 U/L (<34); BILIRUBIN,DIRECT 0.6 MG/DL (<0.4); BILIRUBIN,TOTAL 1.8 MG/DL (0.3-1.2); BLOOD UREA NITROGEN 19 MG/DL (9-23); CALCIUM LEVEL 9.2 MG/DL (8.3-10.6); CARBON DIOXIDE LEVEL 30 MMOL/L (20-31); CHLORIDE LEVEL 105 MMOL/L (98-107); CREATININE FOR GFR 0.88 MG/DL (0.55-1.30); GLOMERULAR FILTRATION RATE > 60.0 (>32); GLUCOSE, FASTING 103 MG/DL (74-106); POTASSIUM SERUM 3.9 MMOL/L (3.5-5.1); SODIUM LEVEL 145 MMOL/L (136-145); TOTAL PROTEIN 6.3 G/DL (5.7-8.2)
[2024-10-22 15:21] LABS: CPK CREATINE PHOSPHOKINASE 4158 U/L (34-145); MB/CK RELATIVE INDEX 0.45 (< OR =4)
[2024-10-22 15:51] LABS: CK-MB VALUE MASS 17.3 NG/ML (<3.6)
[2024-10-22 16:05] LABS: MB/CK RELATIVE INDEX 0.44 (< OR =4)
[2024-10-22 17:09] LABS: FREE T4 1.69 NG/DL (0.89-1.76)
[2024-10-22 17:37] LABS: KETONE, URINE AUTO RFX TRACE mg/dL (NEGATIVE); NITRITE, URINE AUTO RFX NEGATIVE (NEGATIVE); RBC, URINE AUTO RFX 7 /HPF (0-3); SQUAM EPITHELIAL CELL UR AURFX 2 /HPF (0-6)
[2024-10-22 17:38] LABS: LEUKOCYTE ESTERASE UR AUTO RFX 3+ (NEGATIVE); WBC, URINE AUTO RFX TNTC /HPF (0-3)
[2024-10-22] MEDS ORDERED: MAALOX 30 ML SUSP *UDC PO PRN (17:45)
[2024-10-22] MEDS ORDERED: MOM 30ML SUSPENSION UDC PO PRN (17:45)
[2024-10-22] MEDS ORDERED: LEVO50TA5 PO (17:52)
[2024-10-22] MEDS ORDERED: METO100T5 PO (17:52)
[2024-10-22] MEDS ORDERED: ROPI0.5T33 PO (17:52)
[2024-10-22] MEDS ORDERED: HOME MED LIST COMPLETE! XX SCH (17:55)
[2024-10-22] MEDS: ROSUVASTATIN 10 MG TAB (CRESTOR) PO SCH (18:32)
[2024-10-22] MEDS: NS (Normal Saline) 0.9% 1,000 ML IV SCH (18:32)
[2024-10-22] MEDS: OSELTAMIVIR PHOSPHATE 75 MG CAP PO ONE (18:32)
[2024-10-22] MEDS: PANTOPRAZOLE 40MG TAB (PROTONIX) PO SCH (18:37)
[2024-10-22] MEDS: METOPROLOL 5 MG/5 ML VIAL IV STA (18:37)
[2024-10-22] MEDS: METOPROLOL 5 MG/5 ML VIAL IV PRN (18:47)
[2024-10-22] MEDS: EZETIMIBE 10MG TABLET (ZETIA) PO SCH (19:35)
[2024-10-22] MEDS ORDERED: METOPROLOL TART 50 MG TAB PO SCH (21:00)
[2024-10-22] MEDS: PROMETHAZINE 25MG/ML 1ML VIAL IV PRN (21:55)
[2024-10-22] MEDS: METOPROLOL TARTRATE 100MG TAB PO SCH (23:42)
[2024-10-22] MEDS: POTASSIUM CHLORIDE 10MEQ SR TABLET PO SCH (23:43)
[2024-10-22] MEDS: DABIGATRAN ETEXILATE 75 MG CAP (PRADAXA) PO SCH (23:43)
[2024-10-22] MEDS: rOPINIRole 0.25 MG TAB(REQUIP) PO SCH (23:43)
[2024-10-23] MEDS: LEVALBUTEROL 1.25MG 0.5ML CONCENTRATE NEB INH PRN (03:38)
[2024-10-23] MEDS: LEVOTHYROXINE 50MCG TABLET (0.05MG) PO SCH (06:10)
[2024-10-23 06:30] LABS: BLOOD UREA NITROGEN 22 MG/DL (9-23); CARBON DIOXIDE LEVEL 27 MMOL/L (20-31); CHLORIDE LEVEL 108 MMOL/L (98-107); CPK CREATINE PHOSPHOKINASE 2232 U/L (34-145); CREATININE FOR GFR 0.88 MG/DL (0.55-1.30); GLOMERULAR FILTRATION RATE > 60.0 (>32); GLUCOSE, FASTING 104 MG/DL (74-106); MAGNESIUM LEVEL 1.9 MG/DL (1.8-2.4); POTASSIUM SERUM 3.9 MMOL/L (3.5-5.1); SODIUM LEVEL 148 MMOL/L (136-145)
[2024-10-23] MEDS: cefTRIAXone SOD 2 GM in DEXTROSE 5% (D5W) ADV/MINI-BAG 50 ML IV SCH (08:55)
[2024-10-23] MEDS: OSELTAMIVIR PHOSPHATE 30MG CAPSULE PO SCH (08:56)
[2024-10-23 10:50] LABS: PROCALCITONIN 0.26 ng/ml
[2024-10-24] VITALS (7 sets, daily range): BP systolic 94–124; BP diastolic 54–68; TEMP 97.1–98.6; O2SAT 91–100
[2024-10-24 07:43] LABS: CALCIUM LEVEL 8.5 MG/DL (8.3-10.6); CREATININE FOR GFR 0.97 MG/DL (0.55-1.30); GLOMERULAR FILTRATION RATE 57.6 (>32); MAGNESIUM LEVEL 2.2 MG/DL (1.8-2.4); POTASSIUM SERUM 4.6 MMOL/L (3.5-5.1)
[2024-10-24] MEDS: SENOKOT S TAB PO SCH (08:29)
[2024-10-25] VITALS (8 sets, daily range): BP systolic 96–138; BP diastolic 64–85; TEMP 96.3–98.5; O2SAT 91–96
[2024-10-25 07:15] LABS: CALCIUM LEVEL 8.3 MG/DL (8.3-10.6); CREATININE FOR GFR 0.97 MG/DL (0.55-1.30); GLOMERULAR FILTRATION RATE 57.6 (>32); MAGNESIUM LEVEL 2.3 MG/DL (1.8-2.4); POTASSIUM SERUM 4.6 MMOL/L (3.5-5.1)
[2024-10-25] MEDS: CEFDINIR 300 MG CAP (OMNICEF) PO SCH (09:23)
[2024-10-26 03:29] VITALS: BP 140/93; TEMP 97.5; O2SAT 94
[2024-10-26 06:35] LABS: BLOOD UREA NITROGEN 21 MG/DL (9-23); CALCIUM LEVEL 8.7 MG/DL (8.3-10.6); CARBON DIOXIDE LEVEL 27 MMOL/L (20-31); CHLORIDE LEVEL 112 MMOL/L (98-107); GLOMERULAR FILTRATION RATE > 60.0 (>32); GLUCOSE, FASTING 117 MG/DL (74-106); MAGNESIUM LEVEL 2.2 MG/DL (1.8-2.4); POTASSIUM SERUM 4.8 MMOL/L (3.5-5.1); SODIUM LEVEL 144 MMOL/L (136-145)
[2024-10-26 08:32] VITALS: BP 141/68; TEMP 97.5; O2SAT 94
[2024-10-26] MEDS ORDERED: OSEL30CA PO (14:11)
[2024-10-26] MEDS ORDERED: CEFD300CAP PO (14:11)
[2024-10-26] MEDS ORDERED: PROBCAP14 PO (14:12)
== END 2024-10-26 16:28 | disposition home health service (06) | DRG 194 ==
LOC: EDBD 13:32 → M ED 13:32 → M ED INP 17:44 → M PCU 10-24 00:12
PROVIDERS: ADMIT Student in an Organized Health Care Education/Training Program; ATTEND Student in an Organized Health Care Education/Training Program
DX: J10.1 Influenza due to other identified influenza virus with other respiratory manifestations (principal); I13.0 Hypertensive heart and chronic kidney disease with heart failure and stage 1 through stage 4 chronic kidney disease, or unspecified chronic kidney disease; M62.82 Rhabdomyolysis; N39.0 Urinary tract infection, site not specified; I48.20 Chronic atrial fibrillation, unspecified; Z66 Do not resuscitate; B96.20 Unspecified Escherichia coli [E. coli] as the cause of diseases classified elsewhere; I50.9 Heart failure, unspecified; I25.10 Atherosclerotic heart disease of native coronary artery without angina pectoris; K21.9 Gastro-esophageal reflux disease without esophagitis; N18.9 Chronic kidney disease, unspecified; M19.90 Unspecified osteoarthritis, unspecified site; G47.00 Insomnia, unspecified; D64.9 Anemia, unspecified; H93.19 Tinnitus, unspecified ear; R19.7 Diarrhea, unspecified; Z79.890 Hormone replacement therapy; Z79.899 Other long term (current) drug therapy; Z95.1 Presence of aortocoronary bypass graft

== ENCOUNTER → 2024-11-07 | Outpatient (REF) | payer MEDICARE ==
[~2024-11-07] MED LIST changes: +CEFD300CAP PO; +LEVO50TA5 PO; +METO100T5 PO; +OSEL30CA PO; +PROBCAP14 PO; +ROPI0.5T33 PO
== END ==
LOC: M LAB REF 12:12
PROVIDERS: ATTEND Internal Medicine
DX: D50.9 Iron deficiency anemia, unspecified (principal)

== ENCOUNTER → 2025-01-01 | Outpatient (REF) | payer MEDICARE ==
[2025-01-01 18:45] LABS: URIC ACID 8.2 MG/DL (3.1-7.8)
[2025-01-01 18:47] LABS: PTH INTACT 217.8 PG/ML (18.5-88.0)
[2025-01-01 18:48] LABS: PERCENT SATURATION 31.3 % (13.2-45.0)
[2025-01-01 18:51] LABS: FERRITIN 88.8 NG/ML (7.3-270.7)
== END ==
LOC: M LAB REF 17:47
PROVIDERS: ATTEND Internal Medicine
DX: D50.9 Iron deficiency anemia, unspecified (principal); N18.32 Chronic kidney disease, stage 3b

== ENCOUNTER → 2025-04-03 | Outpatient (REF) | payer MEDICARE | LOC: M LAB REF 12:05 | PROVIDERS: ATTEND Internal Medicine | DX: N18.32 Chronic kidney disease, stage 3b (principal) ==